=== PATIENT | male | born 1940 | race Caucasian/White ===

== ENCOUNTER 2016-04-08 16:10 | Inpatient (IN) | payer OTHER ==
[~2016-04-08] VITALS: Ht 170.2 cm; Wt 69.9 kg
[2016-04-08] MEDS ORDERED: ASPIRIN 325 MG TABLET ONE (16:28)
[2016-04-08] MEDS ORDERED: NITROGLYCERIN 0.4 MG/TAB BOTTLE ONE (16:28)
[2016-04-08] MEDS ORDERED: NITROGLYCERIN 0.4 MG/TAB BOTTLE SL ONE (16:30)
[2016-04-08] MEDS ORDERED: ASPIRIN 325 MG TABLET PO ONE (16:30)
[2016-04-08] MEDS ORDERED: FURO40TA5 PO (16:36)
[2016-04-08] MEDS ORDERED: GLIP10TA11 PO (16:36)
[2016-04-08] MEDS ORDERED: BENA40TA2 PO (16:36)
[2016-04-08] MEDS ORDERED: NIFE30TA7 PO (16:36)
[2016-04-08 16:40] LABS: BASOPHILS % (AUTO) 0.3 % (0.0-2.0); DIFF TOTAL % 100 %; EOSINOPHILS # (AUTO) 0.1 /CMM (0.0-0.7); EOSINOPHILS % (AUTO) 1.3 % (0.0-6.0); HEMATOCRIT 30 % (39-51); HEMOGLOBIN 10.1 g/dL (13.5-17.5); LYMPHOCYTES # (AUTO) 1.3 /CMM (0.8-4.8); LYMPHOCYTES % (AUTO) 13.2 % (20.0-44.0); MEAN CORPUSCULAR HEMOGLOBIN 30 PG (26.0-33.0); MEAN CORPUSCULAR HGB CONC 34 g/dl (31.0-36.0); MEAN CORPUSCULAR VOLUME 90 fL (80-96); MONOCYTES # (AUTO) 0.6 /CMM (0.1-1.30); MONOCYTES % (AUTO) 6.8 % (2.0-12.0); NEUTROPHILS # (AUTO) 7.5 /CMM (1.8-8.9); NEUTROPHILS % (AUTO) 78.4 % (43.0-81.0); PLATELET COUNT (AUTO) 221 /CMM (150-450); RED BLOOD CELL COUNT(AUTO) 3.36 MIL/uL (4.5-6.0); WHITE BLOOD COUNT (AUTO) 9.5 K/uL (4.3-11.0)
[2016-04-08] MEDS ORDERED: LEVOFLOXACIN 750 MG /D5W 150ML 150 ML IV ONE ×2 (16:56→17:00)
[2016-04-08] MEDS ORDERED: IV SET PRIMARY PUMP SET 1 EA INFUS.SET MC ONE ×2 (16:56→23:44)
[2016-04-08 16:58] LABS: INR 0.97 (0.87-1.13); PROTHROMBIN TIME 10.2 SECS (9.5-12.7)
[2016-04-08 17:03] LABS: ALANINE AMINOTRANSFERASE 18 U/L (12-78); ALBUMIN 3.2 g/dL (3.4-5.0); ANION GAP 15 (5-14); ASPARTATE AMINOTRANSFERASE 14 U/L (15-37); BILIRUBIN,DIRECT 0.1 mg/dL (0.0-0.2); BILIRUBIN,TOTAL 0.5 mg/dL (0.2-1.0); CALCIUM, SERUM 9.3 mg/dL (8.5-10.1); CARBON DIOXIDE 32 mmol/L (21-32); CHLORIDE 97 mmol/L (98-107); GLUCOSE 168 mg/dL (74-106); INDIRECT BILIRUBIN 0.4 mg/dL (0.0-1.1); POTASSIUM 4.7 mmol/L (3.5-5.1); SODIUM SERUM 139 mmol/L (136-145); TOTAL PROTEIN, SERUM 7.6 g/dL (6.4-8.2); UREA NITROGEN, BLOOD 49 mg/dL (7-18)
[2016-04-08 17:11] LABS: CREATININE 8.1 mg/dL (0.6-1.3)
[2016-04-08 17:12] LABS: TROPONIN I 0.878 ng/mL (0.00-0.056)
[2016-04-08 20:00] VITALS: BP_SYST 151; BP_SYST 152; BP_DIAS 107; BP_DIAS 84
[2016-04-08 21:00] VITALS: BP 152/107
[2016-04-08] MEDS ORDERED: MAG HYDROX/AL HYDROX/SIMETH 30 ML UDC PO PRN (23:30)
[2016-04-08] MEDS ORDERED: VANCOMYCIN 1 GM in IV D5W 250 ML IV SCH (23:30)
[2016-04-08] MEDS ORDERED: ZOLPIDEM TARTRATE 5 MG TABLET PO PRN (23:30)
[2016-04-08] MEDS ORDERED: ACETAMINOPHEN 325 MG TABLET PO PRN (23:30)
[2016-04-08] MEDS ORDERED: ONDANSETRON HCL/PF 4 MG/2 ML VIAL IVP PRN (23:30)
[2016-04-08] MEDS ORDERED: LEVOFLOXACIN 500 MG /D5W 100ML 100 ML IV SCH (23:30)
[2016-04-08] MEDS ORDERED: HYDROCODONE/APAP 5/325MG 1 EACH TABLET PO PRN (23:30)
[2016-04-08] MEDS ORDERED: MAGNESIUM HYDROXIDE 30 ML UDC PO PRN (23:30)
[2016-04-08] MEDS ORDERED: Z GUARD REMEDY 2 OZ OINT TP PRN (23:30)
[2016-04-08] MEDS ORDERED: MORPHINE SULFATE INJ 2 MG/ML DISP.SYRIN IV PRN (23:30)
[2016-04-08] MEDS ORDERED: IV NS 0.9% 250 ML IV ONE (23:44)
[2016-04-08] MEDS ORDERED: SECONDARY IV SET 1 EA INFUS.SET MC ONE (23:44)
[2016-04-08] MEDS ORDERED: PIPERACILLIN /TAZOBACTAM 3.375 G VIAL IV ONE (23:51)
[2016-04-08] MEDS ORDERED: ZOLPIDEM TARTRATE 5 MG TABLET ONE (23:51)
[2016-04-08] MEDS ORDERED: IV D5W 100 ML IV ONE (23:52)
[2016-04-09] VITALS (8 sets, daily range): BP systolic 146–192; BP diastolic 84–112
[2016-04-09] MEDS ORDERED: IV D5W 250 ML IV ONE ×2 (00:11→00:41)
[2016-04-09] MEDS ORDERED: VANCOMYCIN 1 GM VIAL ONE (00:11)
[2016-04-09] MEDS: PIPERACILLIN /TAZOBACTAM 3.375 G in IV D5W 100 ML IV SCH ×2 (00:14→05:00)
[2016-04-09] MEDS ORDERED: DEXTROSE 50%-WATER 50 ML DISP.SYRIN IV PRN (01:00)
[2016-04-09] MEDS ORDERED: METOPROLOL TARTRATE 25 MG TABLET ONE (03:18)
[2016-04-09] MEDS ORDERED: ALBUTEROL FS 2.5 MG/0.5 ML VIAL.NEB NEB PRN (03:30)
[2016-04-09] MEDS ORDERED: METOPROLOL TARTRATE 25 MG TABLET PO PRN (03:30)
[2016-04-09] MEDS ORDERED: IPRATROPIUM NEB FS 0.5 MG/2.5 ML AMPUL.NEB NEB PRN (03:30)
[2016-04-09] MEDS ORDERED: PIPERACILLIN /TAZOBACTAM 3.375 G in IV D5W 100 ML IV SCH (05:00)
[2016-04-09] MEDS: BLOOD SUGAR DIAGNOSTIC 1 EACH STRIP IN SCH ×4 (06:03→21:35)
[2016-04-09 07:32] LABS: BASOPHILS % (AUTO) 0.2 % (0.0-2.0); DIFF TOTAL % 100 %; EOSINOPHILS % (AUTO) 0.3 % (0.0-6.0); HEMATOCRIT 31 % (39-51); HEMOGLOBIN 10.6 g/dL (13.5-17.5); LYMPHOCYTES # (AUTO) 0.8 /CMM (0.8-4.8); LYMPHOCYTES % (AUTO) 5.9 % (20.0-44.0); MEAN CORPUSCULAR HEMOGLOBIN 30 PG (26.0-33.0); MEAN CORPUSCULAR HGB CONC 34 g/dl (31.0-36.0); MEAN CORPUSCULAR VOLUME 90 fL (80-96); MONOCYTES # (AUTO) 0.7 /CMM (0.1-1.30); MONOCYTES % (AUTO) 5.2 % (2.0-12.0); NEUTROPHILS # (AUTO) 12.4 /CMM (1.8-8.9); NEUTROPHILS % (AUTO) 88.4 % (43.0-81.0); PLATELET COUNT (AUTO) 241 /CMM (150-450); RED BLOOD CELL COUNT(AUTO) 3.48 MIL/uL (4.5-6.0)
[2016-04-09 07:48] LABS: ALANINE AMINOTRANSFERASE 15 U/L (12-78); ALBUMIN 3.2 g/dL (3.4-5.0); ANION GAP 18 (5-14); ASPARTATE AMINOTRANSFERASE 19 U/L (15-37); BILIRUBIN,TOTAL 0.5 mg/dL (0.2-1.0); CALCIUM, SERUM 9.2 mg/dL (8.5-10.1); CARBON DIOXIDE 29 mmol/L (21-32); CHLORIDE 95 mmol/L (98-107); GLUCOSE 175 mg/dL (74-106); PHOSPHORUS 4.3 mg/dL (2.5-4.9); POTASSIUM 5.3 mmol/L (3.5-5.1); SODIUM SERUM 137 mmol/L (136-145); TOTAL PROTEIN, SERUM 7.9 g/dL (6.4-8.2); UREA NITROGEN, BLOOD 56 mg/dL (7-18)
[2016-04-09 07:53] LABS: CREATININE 8.8 mg/dL (0.6-1.3)
[2016-04-09] MEDS: BENAZEPRIL HCL 20 MG TABLET PO SCH (08:09)
[2016-04-09] MEDS: glipiZIDE 10 MG TABLET PO SCH (08:09)
[2016-04-09] MEDS: FUROSEMIDE 40 MG TABLET PO SCH ×2 (08:09→17:10)
[2016-04-09] MEDS: NIFEdipine XL (30MG) 30 MG TAB PO SCH (08:10)
[2016-04-09] MEDS: PANTOPRAZOLE 40 MG VIAL IV SCH (08:10)
[2016-04-09] MEDS ORDERED: FEE PK DOSING 1 MIN EA MC ONE (08:16)
[2016-04-09] MEDS ORDERED: VANCOMYCIN 500 MG in IV D5W 100 ML IV PRN (08:30)
[2016-04-09] MEDS ORDERED: hydrALAZINE HCL 50 MG TABLET PO ONE (11:30)
[2016-04-09] MEDS: PIPERACILLIN /TAZOBACTAM 2.25 G in IV D5W 50 ML IV SCH ×2 (11:43→18:24)
[2016-04-09] MEDS: MINOXIDIL (2.5MG) 2.5 MG TABLET PO SCH (11:44)
[2016-04-09] MEDS: hydrALAZINE HCL 25 MG TABLET PO SCH ×2 (12:37→23:13)
[2016-04-09] MEDS ORDERED: LEVOFLOXACIN 500 MG /D5W 100ML 100 ML IV SCH (17:00)
[2016-04-09] MEDS ORDERED: LEVOFLOXACIN 250 MG /D5W 50 ML 250 MG in PREMIX 1 EA IV SCH (17:00)
[2016-04-09] MEDS ORDERED: SECONDARY IV SET 1 EA INFUS.SET MC ONE ×2 (17:09→23:09)
[2016-04-09] MEDS ORDERED: VANCOMYCIN 1 GM in IV D5W 250 ML IV ONE (20:00)
[2016-04-09] MEDS: *INSULIN REGULAR(HUMULIN R)HUM 100 UNIT/ML VIAL SQ PRN (21:39)
[2016-04-09] MEDS: ATORVASTATIN 40 MG TABLET PO SCH (23:12)
[2016-04-09] MEDS: CARVEDILOL 12.5 MG TABLET PO SCH (23:12)
[2016-04-10] VITALS: BP 157/93
[2016-04-10] MEDS: PIPERACILLIN /TAZOBACTAM 2.25 G in IV D5W 50 ML IV SCH ×4 (00:19→19:53)
[2016-04-10 04:00] VITALS: BP 155/84
[2016-04-10] MEDS: hydrALAZINE HCL 25 MG TABLET PO SCH ×3 (04:48→21:00)
[2016-04-10] MEDS: BLOOD SUGAR DIAGNOSTIC 1 EACH STRIP IN SCH ×4 (06:26→22:20)
[2016-04-10] MEDS: INSULIN REGULAR, HUMAN 100 UNIT/ML 3 ML VIAL SQ PRN ×3 (06:29→18:34)
[2016-04-10 07:09] VITALS: BP 170/90
[2016-04-10 07:36] LABS: BASOPHILS # (AUTO) 0.1 /CMM (0.0-0.2); BASOPHILS % (AUTO) 0.5 % (0.0-2.0); DIFF TOTAL % 100 %; EOSINOPHILS # (AUTO) 0.1 /CMM (0.0-0.7); EOSINOPHILS % (AUTO) 0.6 % (0.0-6.0); HEMATOCRIT 27 % (39-51); LYMPHOCYTES # (AUTO) 0.9 /CMM (0.8-4.8); LYMPHOCYTES % (AUTO) 8.8 % (20.0-44.0); MEAN CORPUSCULAR HEMOGLOBIN 30 PG (26.0-33.0); MEAN CORPUSCULAR HGB CONC 34 g/dl (31.0-36.0); MEAN CORPUSCULAR VOLUME 90 fL (80-96); MONOCYTES # (AUTO) 0.8 /CMM (0.1-1.30); NEUTROPHILS # (AUTO) 8.1 /CMM (1.8-8.9); NEUTROPHILS % (AUTO) 82.1 % (43.0-81.0); PLATELET COUNT (AUTO) 209 /CMM (150-450); RED BLOOD CELL COUNT(AUTO) 2.96 MIL/uL (4.5-6.0); WHITE BLOOD COUNT (AUTO) 9.9 K/uL (4.3-11.0)
[2016-04-10 07:48] LABS: CALCIUM, SERUM 8.7 mg/dL (8.5-10.1); CREATININE 6.5 mg/dL (0.6-1.3); PHOSPHORUS 3.8 mg/dL (2.5-4.9); POTASSIUM 4.1 mmol/L (3.5-5.1)
[2016-04-10] MEDS ORDERED: VANCOMYCIN 500 MG in IV D5W 100 ML IV PRN (08:30)
[2016-04-10] MEDS: CARVEDILOL 12.5 MG TABLET PO SCH ×2 (09:00→21:00)
[2016-04-10] MEDS: MINOXIDIL (2.5MG) 2.5 MG TABLET PO SCH (09:00)
[2016-04-10] MEDS: glipiZIDE 10 MG TABLET PO SCH ×2 (09:00→10:08)
[2016-04-10] MEDS: FUROSEMIDE 40 MG TABLET PO SCH ×2 (10:05→18:49)
[2016-04-10] MEDS: ASPIRIN 81 MG TAB.CHEW PO SCH (10:05)
[2016-04-10] MEDS: NIFEdipine XL (30MG) 30 MG TAB PO SCH (10:05)
[2016-04-10] MEDS: BENAZEPRIL HCL 20 MG TABLET PO SCH (10:06)
[2016-04-10] MEDS: PANTOPRAZOLE 40 MG VIAL IV SCH (10:08)
[2016-04-10] MEDS ORDERED: NA PHOS,M-B/NA PHOS,DI-BA 1 EA ENEMA RC PRN (15:30)
[2016-04-10 16:00] VITALS: BP 136/66
[2016-04-10] MEDS: LACTOBACILLUS RHAMNOSUS GG 1 EACH CAP.SPRINK PO SCH (18:49)
[2016-04-10 20:25] VITALS: BP 145/77
[2016-04-10] MEDS: ATORVASTATIN 40 MG TABLET PO SCH (22:07)
[2016-04-10] MEDS: *INSULIN REGULAR(HUMULIN R)HUM 100 UNIT/ML VIAL SQ PRN (22:30)
[2016-04-11] MEDS: PIPERACILLIN /TAZOBACTAM 2.25 G in IV D5W 50 ML IV SCH ×2 (00:11→05:56)
[2016-04-11] MEDS: hydrALAZINE HCL 25 MG TABLET PO SCH (05:00)
[2016-04-11] MEDS: BLOOD SUGAR DIAGNOSTIC 1 EACH STRIP IN SCH ×2 (05:55→12:00)
[2016-04-11] MEDS: INSULIN REGULAR, HUMAN 100 UNIT/ML 3 ML VIAL SQ PRN (06:16)
[2016-04-11 06:49] LABS: BASOPHILS % (AUTO) 0.4 % (0.0-2.0); DIFF TOTAL % 100 %; EOSINOPHILS # (AUTO) 0.2 /CMM (0.0-0.7); EOSINOPHILS % (AUTO) 1.7 % (0.0-6.0); HEMATOCRIT 25 % (39-51); HEMOGLOBIN 8.4 g/dL (13.5-17.5); LYMPHOCYTES # (AUTO) 0.8 /CMM (0.8-4.8); LYMPHOCYTES % (AUTO) 8.2 % (20.0-44.0); MEAN CORPUSCULAR HEMOGLOBIN 30 PG (26.0-33.0); MEAN CORPUSCULAR HGB CONC 34 g/dl (31.0-36.0); MEAN CORPUSCULAR VOLUME 90 fL (80-96); MONOCYTES # (AUTO) 0.6 /CMM (0.1-1.30); MONOCYTES % (AUTO) 6.8 % (2.0-12.0); NEUTROPHILS # (AUTO) 7.8 /CMM (1.8-8.9); NEUTROPHILS % (AUTO) 82.9 % (43.0-81.0); PLATELET COUNT (AUTO) 212 /CMM (150-450); WHITE BLOOD COUNT (AUTO) 9.4 K/uL (4.3-11.0)
[2016-04-11 07:47] LABS: PHOSPHORUS 4.3 mg/dL (2.5-4.9); POTASSIUM 4.3 mmol/L (3.5-5.1)
[2016-04-11 07:50] LABS: CREATININE 8.5 mg/dL (0.6-1.3)
[2016-04-11 08:00] VITALS: BP 152/84
[2016-04-11] MEDS: NIFEdipine XL (30MG) 30 MG TAB PO SCH (08:31)
[2016-04-11] MEDS: glipiZIDE 10 MG TABLET PO SCH (08:31)
[2016-04-11] MEDS: FUROSEMIDE 40 MG TABLET PO SCH (08:31)
[2016-04-11] MEDS: ASPIRIN 81 MG TAB.CHEW PO SCH (08:31)
[2016-04-11] MEDS: BENAZEPRIL HCL 20 MG TABLET PO SCH (08:31)
[2016-04-11] MEDS: LACTOBACILLUS RHAMNOSUS GG 1 EACH CAP.SPRINK PO SCH (08:31)
[2016-04-11 08:32] VITALS: BP 152/84
[2016-04-11] MEDS: CARVEDILOL 12.5 MG TABLET PO SCH (08:32)
[2016-04-11] MEDS: MINOXIDIL (2.5MG) 2.5 MG TABLET PO SCH (08:32)
[2016-04-11] MEDS: PANTOPRAZOLE 40 MG VIAL IV SCH (08:32)
== END 2016-04-11 12:30 | disposition home or self-care (01) | DRG 194 ==
LOC: ER 16:13 → TELE 19:40 → MED 04-10 11:45
PROVIDERS: ADMIT Nurse Practitioner Acute Care; ATTEND Nurse Practitioner Acute Care
PROC: 5A1D60Z (ICD-10-PCS; principal; 2016-04-09)
DX: I13.2 Hypertensive heart and chronic kidney disease with heart failure and with stage 5 chronic kidney disease, or end stage renal disease (principal); I21.4 Non-ST elevation (NSTEMI) myocardial infarction; J96.01 Acute respiratory failure with hypoxia; J15.9 Unspecified bacterial pneumonia; E44.0 Moderate protein-calorie malnutrition; J90 Pleural effusion, not elsewhere classified; N18.6 End stage renal disease; I42.9 Cardiomyopathy, unspecified; I50.43 Acute on chronic combined systolic (congestive) and diastolic (congestive) heart failure; I50.1 Left ventricular failure, unspecified; E11.22 Type 2 diabetes mellitus with diabetic chronic kidney disease; D63.8 Anemia in other chronic diseases classified elsewhere; Z99.2 Dependence on renal dialysis; E87.5 Hyperkalemia; I25.10 Atherosclerotic heart disease of native coronary artery without angina pectoris; K21.9 Gastro-esophageal reflux disease without esophagitis; Z68.24 Body mass index [BMI] 24.0-24.9, adult
CPT/HCPCS: 36415; 71010-TC; 80048-TC; 80053-TC; 80061-TC; 80076-TC; 80202-TC; 82962-TC; 83605-TC; 83735-TC; 83880; 84100-TC; 84484-TC; 85025-TC; 85730-TC; 87040-TC; 90935-TC; 93307-TC; 94799-TC; 97001-TC; A4216; A4606; C9113; J1815; J1956; J2543; J3370; J7050; J7060; Z7610

== ENCOUNTER 2016-05-12 10:20 | Inpatient (IN) | payer OTHER ==
[~2016-05-12] VITALS: Ht 167.6 cm; Wt 74.8 kg
[~2016-05-12 10:20] MED LIST: BENA40TA2 PO; FURO40TA5 PO; GLIP10TA11 PO; NIFE30TA7 PO
[2016-05-12 10:59] LABS: BASOPHILS # (AUTO) 0.1 /CMM (0.0-0.2); BASOPHILS % (AUTO) 0.7 % (0.0-2.0); DIFF TOTAL % 100 %; EOSINOPHILS # (AUTO) 0.2 /CMM (0.0-0.7); EOSINOPHILS % (AUTO) 2.5 % (0.0-6.0); HEMATOCRIT 27 % (39-51); HEMOGLOBIN 9.1 g/dL (13.5-17.5); LYMPHOCYTES # (AUTO) 1.2 /CMM (0.8-4.8); LYMPHOCYTES % (AUTO) 13.8 % (20.0-44.0); MEAN CORPUSCULAR HEMOGLOBIN 30 PG (26.0-33.0); MEAN CORPUSCULAR HGB CONC 34 g/dl (31.0-36.0); MEAN CORPUSCULAR VOLUME 90 fL (80-96); MONOCYTES # (AUTO) 0.5 /CMM (0.1-1.30); MONOCYTES % (AUTO) 5.5 % (2.0-12.0); NEUTROPHILS # (AUTO) 6.8 /CMM (1.8-8.9); NEUTROPHILS % (AUTO) 77.5 % (43.0-81.0); PLATELET COUNT (AUTO) 309 /CMM (150-450); RED BLOOD CELL COUNT(AUTO) 3.02 MIL/uL (4.5-6.0); WHITE BLOOD COUNT (AUTO) 8.8 K/uL (4.3-11.0)
[2016-05-12] MEDS ORDERED: PROM6.25 PO (11:06)
[2016-05-12] MEDS ORDERED: AMPI250C13 PO (11:06)
[2016-05-12] MEDS ORDERED: ASPI81TA2 PO (11:06)
[2016-05-12] MEDS ORDERED: SIMV20TA6 PO (11:06)
[2016-05-12 11:17] LABS: INR 0.98 (0.87-1.13); PROTHROMBIN TIME 10.3 SECS (9.5-12.7)
[2016-05-12 11:21] LABS: TROPONIN I 0.112 ng/mL (0.00-0.056)
[2016-05-12 12:00] VITALS: BP 148/94
[2016-05-12 12:08] LABS: CALCIUM, SERUM 9.5 mg/dL (8.5-10.1)
[2016-05-12 12:10] LABS: CREATININE 9.4 mg/dL (0.6-1.3)
[2016-05-12 12:21] LABS: ALBUMIN 3.5 g/dL (3.4-5.0); BILIRUBIN,DIRECT 0.1 mg/dL (0.0-0.2); BILIRUBIN,TOTAL 0.6 mg/dL (0.2-1.0); INDIRECT BILIRUBIN 0.5 mg/dL (0.0-1.1); TOTAL PROTEIN, SERUM 7.8 g/dL (6.4-8.2)
[2016-05-12] MEDS ORDERED: FUROSEMIDE 20 MG/2 ML VIAL IV SCH (12:30)
[2016-05-12] MEDS ORDERED: ASPIRIN 325 MG TABLET PO ONE (12:30)
[2016-05-12] MEDS ORDERED: NITROGLYCERIN PACKET 1 GM PACKET TD ONE (12:30)
[2016-05-12] MEDS ORDERED: EPOETIN ALFA (10,000 UNIT) 10,000 UNIT/ML VIAL SQ ONE (15:00)
[2016-05-12 16:00] VITALS: BP 152/93
[2016-05-12 20:00] VITALS: BP 167/83
[2016-05-12] MEDS ORDERED: MAG HYDROX/AL HYDROX/SIMETH 30 ML UDC PO PRN (20:00)
[2016-05-12] MEDS ORDERED: MAGNESIUM HYDROXIDE 30 ML UDC PO PRN (20:00)
[2016-05-12] MEDS ORDERED: ONDANSETRON HCL/PF 4 MG/2 ML VIAL IVP PRN (20:00)
[2016-05-12] MEDS ORDERED: HYDROCODONE/APAP 5/325MG 1 EACH TABLET PO PRN (20:00)
[2016-05-12] MEDS ORDERED: ZOLPIDEM TARTRATE 5 MG TABLET PO PRN (20:00)
[2016-05-12] MEDS ORDERED: ACETAMINOPHEN 325 MG TABLET PO PRN (20:00)
[2016-05-12] MEDS ORDERED: Z GUARD REMEDY 2 OZ OINT TP PRN (20:00)
[2016-05-13] VITALS: BP 168/97
[2016-05-13 04:00] VITALS: BP 153/93
[2016-05-13 08:00] VITALS: BP 109/84
[2016-05-13 08:25] LABS: CALCIUM, SERUM 9.3 mg/dL (8.5-10.1); PHOSPHORUS 4.4 mg/dL (2.5-4.9); POTASSIUM 5.1 mmol/L (3.5-5.1)
[2016-05-13 08:29] LABS: BASOPHILS % (AUTO) 0.6 % (0.0-2.0); DIFF TOTAL % 100 %; EOSINOPHILS # (AUTO) 0.1 /CMM (0.0-0.7); HEMATOCRIT 27 % (39-51); HEMOGLOBIN 9.1 g/dL (13.5-17.5); LYMPHOCYTES # (AUTO) 1.1 /CMM (0.8-4.8); MEAN CORPUSCULAR HEMOGLOBIN 30 PG (26.0-33.0); MEAN CORPUSCULAR HGB CONC 33 g/dl (31.0-36.0); MEAN CORPUSCULAR VOLUME 90 fL (80-96); MONOCYTES # (AUTO) 0.5 /CMM (0.1-1.30); MONOCYTES % (AUTO) 7.4 % (2.0-12.0); NEUTROPHILS # (AUTO) 5.3 /CMM (1.8-8.9); PLATELET COUNT (AUTO) 283 /CMM (150-450); RED BLOOD CELL COUNT(AUTO) 3.04 MIL/uL (4.5-6.0); WHITE BLOOD COUNT (AUTO) 7.1 K/uL (4.3-11.0)
[2016-05-13] MEDS: FUROSEMIDE 40 MG/4 ML VIAL IV SCH (08:34)
[2016-05-13] MEDS: SIMVASTATIN 20 MG TABLET PO SCH (08:34)
[2016-05-13] MEDS: PROMETHAZINE HCL SYRUP 6.25 MG/5 ML UDC PO SCH ×3 (08:34→16:49)
[2016-05-13] MEDS: ASPIRIN 81 MG TAB.CHEW PO SCH (08:34)
[2016-05-13] MEDS: NIFEdipine XL (30MG) 30 MG TAB PO SCH (08:35)
[2016-05-13] MEDS: BENAZEPRIL HCL 20 MG TABLET PO SCH (08:35)
[2016-05-13 09:03] LABS: CHOLESTEROL 194 mg/dL (<200); HDL CHOLESTEROL 41 mg/dL (40-60); LDL 134 mg/dL (0-99); TRIGLYCERIDES 125 mg/dL (30-150)
[2016-05-13] MEDS: CARVEDILOL 3.125 MG TABLET PO SCH ×2 (10:05→21:00)
[2016-05-13 16:00] VITALS: BP 158/90
[2016-05-13 20:00] VITALS: BP 161/94
[2016-05-14 07:19] LABS: BASOPHILS # (AUTO) 0.1 /CMM (0.0-0.2); BASOPHILS % (AUTO) 0.7 % (0.0-2.0); DIFF TOTAL % 100 %; EOSINOPHILS # (AUTO) 0.2 /CMM (0.0-0.7); HEMATOCRIT 29 % (39-51); HEMOGLOBIN 9.7 g/dL (13.5-17.5); LYMPHOCYTES # (AUTO) 1.2 /CMM (0.8-4.8); LYMPHOCYTES % (AUTO) 14.8 % (20.0-44.0); MEAN CORPUSCULAR HEMOGLOBIN 30 PG (26.0-33.0); MEAN CORPUSCULAR HGB CONC 33 g/dl (31.0-36.0); MEAN CORPUSCULAR VOLUME 89 fL (80-96); MONOCYTES # (AUTO) 0.5 /CMM (0.1-1.30); MONOCYTES % (AUTO) 6.1 % (2.0-12.0); NEUTROPHILS # (AUTO) 6.2 /CMM (1.8-8.9); NEUTROPHILS % (AUTO) 76.4 % (43.0-81.0); PLATELET COUNT (AUTO) 257 /CMM (150-450); RED BLOOD CELL COUNT(AUTO) 3.25 MIL/uL (4.5-6.0); WHITE BLOOD COUNT (AUTO) 8.1 K/uL (4.3-11.0)
[2016-05-14 07:56] LABS: ALANINE AMINOTRANSFERASE 12 U/L (12-78); ALBUMIN 3.3 g/dL (3.4-5.0); ANION GAP 18 (5-14); ASPARTATE AMINOTRANSFERASE 15 U/L (15-37); BILIRUBIN,TOTAL 0.5 mg/dL (0.2-1.0); CALCIUM, SERUM 9.1 mg/dL (8.5-10.1); CARBON DIOXIDE 26 mmol/L (21-32); CHLORIDE 97 mmol/L (98-107); GLUCOSE 161 mg/dL (74-106); POTASSIUM 4.5 mmol/L (3.5-5.1); SODIUM SERUM 137 mmol/L (136-145); TOTAL PROTEIN, SERUM 7.6 g/dL (6.4-8.2); UREA NITROGEN, BLOOD 42 mg/dL (7-18)
[2016-05-14 08:00] VITALS: BP 154/100
[2016-05-14 08:28] LABS: CREATININE 8.4 mg/dL (0.6-1.3)
[2016-05-14] MEDS: FUROSEMIDE 40 MG/4 ML VIAL IV SCH (09:50)
[2016-05-14] MEDS: SIMVASTATIN 20 MG TABLET PO SCH (09:51)
[2016-05-14] MEDS: BENAZEPRIL HCL 20 MG TABLET PO SCH (09:51)
[2016-05-14] MEDS: ASPIRIN 81 MG TAB.CHEW PO SCH (09:51)
[2016-05-14] MEDS: NIFEdipine XL (30MG) 30 MG TAB PO SCH (09:52)
[2016-05-14] MEDS: CARVEDILOL 3.125 MG TABLET PO SCH (09:52)
[2016-05-14] MEDS: PROMETHAZINE HCL SYRUP 6.25 MG/5 ML UDC PO SCH ×3 (10:05→17:58)
[2016-05-14 21:00] VITALS: BP 155/91
[2016-05-14] MEDS ORDERED: CARVEDILOL 3.125 MG TABLET PO SCH (21:00)
[2016-05-14] MEDS ORDERED: ATORVASTATIN 40 MG TABLET PO SCH (22:00)
== END 2016-05-14 22:15 | disposition short-term general hospital (02) | DRG 194 ==
LOC: ER 10:22 → TELE 11:35 → MED 05-13 09:26
PROVIDERS: ADMIT Family Medicine; ATTEND Family Medicine
PROC: 5A1D60Z (ICD-10-PCS; principal; 2016-05-12)
DX: I13.2 Hypertensive heart and chronic kidney disease with heart failure and with stage 5 chronic kidney disease, or end stage renal disease (principal); I21.4 Non-ST elevation (NSTEMI) myocardial infarction; N18.6 End stage renal disease; E11.22 Type 2 diabetes mellitus with diabetic chronic kidney disease; I27.2 Other secondary pulmonary hypertension; E83.9 Disorder of mineral metabolism, unspecified; I50.23 Acute on chronic systolic (congestive) heart failure; I42.9 Cardiomyopathy, unspecified; Z99.2 Dependence on renal dialysis; E78.5 Hyperlipidemia, unspecified; I25.10 Atherosclerotic heart disease of native coronary artery without angina pectoris; D64.9 Anemia, unspecified
CPT/HCPCS: 36415; 71010-TC; 80048-TC; 80053-TC; 80061-TC; 80076-TC; 82962-TC; 83735-TC; 83880; 84100-TC; 84484-TC; 85025-TC; 85730-TC; 87081-TC; 90935-TC; 94799-TC; A4606; A6402; A6403; J0885; J1940; Q0169; Z7610

== ENCOUNTER 2018-01-11 00:27 | Inpatient (IN) | payer OTHER ==
[~2018-01-11] VITALS: Ht 165.1 cm; Wt 59.9 kg
[~2018-01-11 00:27] MED LIST changes: +ASPI-1169 PO; -BENA40TA2 PO; +BENA40TA8 PO; +PROM6.256 PO; +SIMV20TA6 PO
--- NOTE | 2018-01-11 00:34 | NUR ---
Note urvashione in EDM - 01/11/18 at 0048 by MARTIN BIB RA C/O GENERAL WEAKNESS X 1 DAY FROM HOME. AA/OX 4. SPEAKING FULL SENTENCES. NO S/S SOB. SKIN PINK, WARM, DRY. MOVES ALL EXTREMITIES WELL. DENIES N/V/D. DENIES ANY PAIN. NAD. VSS. STABLE CONDITION. WILL CONTINUE TO MONITOR.
--- NOTE | 2018-01-11 00:34 | NUR ---
BIB RA C/O GENERAL WEAKNESS X 1 DAY FROM HOME. AA/OX 4. SPEAKING FULL SENTENCES. O2SAT 90% ROOM AIR. PLACED ON 4LPM VIA NC. CURRENT O2 SAT 95%. SKIN PINK, WARM, DRY. MOVES ALL EXTREMITIES WELL. DENIES N/V/D. DENIES ANY PAIN. NAD. ALL OTHER VSS. STABLE CONDITION. WILL CONTINUE TO MONITOR.
--- NOTE | 2018-01-11 02:33 | NUR ---
Patient is resting comfortably in bed with eyes closed. Easily aroused. VSS
[2018-01-11 02:36] LABS: BASOPHILS % (AUTO) 0.5 % (0.0-2.0); EOSINOPHILS % (AUTO) 2.3 % (0.0-6.0); HEMATOCRIT 39 % (39-51); HEMOGLOBIN 12.4 g/dL (13.5-17.5); LYMPHOCYTES # (AUTO) 1.7 /CMM (0.8-4.8); LYMPHOCYTES % (AUTO) 19.3 % (20.0-44.0); MEAN CORPUSCULAR HGB CONC 32 g/dl (31.0-36.0); MEAN CORPUSCULAR VOLUME 94 fL (80-96); MONOCYTES # (AUTO) 0.6 /CMM (0.1-1.30); MONOCYTES % (AUTO) 7.4 % (2.0-12.0); NEUTROPHILS # (AUTO) 6.1 /CMM (1.8-8.9); NEUTROPHILS % (AUTO) 70.5 % (43.0-81.0); PLATELET COUNT (AUTO) 206 /CMM (150-450); RDW COEFFICIENT OF VARIATION 16.7 (11.5-15.0); WHITE BLOOD COUNT (AUTO) 8.7 K/uL (4.3-11.0)
--- NOTE | 2018-01-11 02:49 | NUR ---
AMBULATED TO BATHROOM WITH STABLE GAIT. NAD. VSS.
[2018-01-11 02:51] LABS: INR 0.99 (0.87-1.13)
[2018-01-11 02:52] LABS: ALANINE AMINOTRANSFERASE 13 U/L (12-78); ALBUMIN 3.8 g/dL (3.4-5.0); ALKALINE PHOSPHATASE 102 U/L (46-116); ASPARTATE AMINOTRANSFERASE 14 U/L (15-37); BILIRUBIN,DIRECT 0.1 mg/dL (0.0-0.2); BILIRUBIN,TOTAL 0.4 mg/dL (0.2-1.0); CALCIUM, SERUM 9.3 mg/dL (8.5-10.1); CARBON DIOXIDE 24 mmol/L (21-32); CHLORIDE 100 mmol/L (98-107); GLUCOSE 130 mg/dL (74-106); POTASSIUM 5.5 mmol/L (3.5-5.1); SODIUM SERUM 141 mmol/L (136-145); TOTAL PROTEIN, SERUM 7.5 g/dL (6.4-8.2); UREA NITROGEN, BLOOD 78 mg/dL (7-18)
[2018-01-11 02:54] LABS: CREATININE 11.3 mg/dL (0.6-1.3)
[2018-01-11 02:57] LABS: APPEARANCE,URINE CLEAR (CLEAR); BILIRUBIN,URINE NEGATIVE (NEGATIVE); BLOOD, URINE NEGATIVE Ery/uL (NEGATIVE); COLOR,URINE YELLOW (YELLOW); KETONES,URINE NEGATIVE (NEGATIVE); LEUKOCYTE ESTERASE ,URINE NEGATIVE (NEGATIVE); NITRITE, URINE NEGATIVE (NEGATIVE); PH,URINE 8.5 (5.0-8.0); PROTEIN,URINE 2+ mg/dl (NEGATIVE); UGLUCOSE 1+ mg/dL (NEGATIVE); UROBILINOGEN,URINE 0.2 EU/dL (0.2)
[2018-01-11 03:06] LABS: BACTERIA,URINE Rare /HPF (None Seen); RBC,URINE 0-2 /HPF (0-2); SQUAMOUS EPITHELIAL CELL,UR Few /HPF (None Seen); WBC,URINE 0-2 /HPF (0-3)
--- NOTE | 2018-01-11 03:46 | NUR ---
PT CONTINUES TO REST COMFORTABLY IN BED. EASILY AROUSED. NAD. VSS. SAFETY MEASURES IN PLACE. CALL LIGHT WITHIN REACH. WILL CONTINUE TO MONITOR.
--- NOTE | 2018-01-11 03:57 | NUR ---
REPORT GIVEN TO CAYETANO ARORA
[2018-01-11] MEDS ORDERED: CEFTRIAXONE 1GM BAG (ER ONLY) 50 ML IV ONE (05:00)
[2018-01-11] MEDS ORDERED: AZITHROMYCIN 250 MG TABLET PO ONE (05:00)
[2018-01-11] MEDS ORDERED: CEFTRIAXONE 1 G VIAL ONE (05:04)
[2018-01-11] MEDS ORDERED: AZITHROMYCIN 250 MG TABLET ONE (05:08)
--- NOTE | 2018-01-11 05:25 | NUR ---
PT TRANSPORTED TO TELE UNIT WITH STABLE CONDITION. VSS. NAD. VIA ACLS PROTOCOL. AMBULATED TO TELE BED WITH STABLE GAIT.
[2018-01-11 05:30] VITALS: BP 160/84
[2018-01-11] MEDS ORDERED: Z GUARD REMEDY 2 OZ OINT TP PRN (05:30)
[2018-01-11] MEDS ORDERED: MAGNESIUM HYDROXIDE 30 ML UDC PO PRN (05:30)
[2018-01-11] MEDS ORDERED: HYDROCODONE/APAP 5/325MG 1 EACH TABLET PO PRN (05:30)
[2018-01-11] MEDS ORDERED: AZITHROMYCIN 250 MG TABLET PO SCH (05:30)
[2018-01-11] MEDS ORDERED: MORPHINE SULFATE INJ 2 MG/ML DISP.SYRIN IV PRN (05:30)
--- NOTE | 2018-01-11 05:59 | NUR ---
RN NOTE RECEIVED PATIENT FROM ER, ON ROOM AIR 98%, AMBULATORY, DX ACUTE RESPIRATORY DISTRESS, NO S/S OF PAIN OR DISCOMFORT NOTED, RIGHT UPPER SHOULDER SHUNT, SKIN IS INTACT, RIGHT HAND 18 GAUGE, NO S/S OF INFECTION/INFILTRATION NOTED, ALERT/ORIENTED X 4, ALL SAFETY MEASURES TAKEN, WILL CONTINUE TO MONITOR
[2018-01-11] MEDS ORDERED: CEFTRIAXONE 1 G in IV D5W 50 ML IV SCH (06:00)
[2018-01-11 08:00] VITALS: BP 166/86
--- NOTE | 2018-01-11 08:00 | NUR ---
RN NOTES RECEIVED PATIENT SITTING, A/O X4, ABLE TO MAKE NEEDS KNOWN, ON ROOM AIR, NOSOB OR DIFFICULTY OF BREATHING NOTED AT THIS TIME, SATURATING AT 92%, DENIES CHEST PAIN OR ANY KIND OF DISCOMFORT, ON TELEMONITOR : SR HR AT 87, R CHEST WALL HEMODIALYSIS CATH, R HAND IVL G 18 INTACT AND PATENT UPON FLUSHING: SALINE LOCK. PATIENT AMBULATORY. ENCOURAGED TO VERBALIZED FEELINGS AND CONCERNED, CALL LIGHT PLACED WITHIN EASY REACH, SAFETY MEASURES IN PLACE, BED ALARM ON, WILL CONTINUE TO MONITOR PATIENT
[2018-01-11] MEDS ORDERED: AMIO200T4 PO (08:01)
[2018-01-11] MEDS ORDERED: ATOR40TA PO (08:01)
[2018-01-11] MEDS ORDERED: METO-357 PO (08:01)
[2018-01-11] MEDS ORDERED: LEVO50TA8 PO (08:01)
[2018-01-11] MEDS ORDERED: APIX5TAB PO (08:01)
[2018-01-11] MEDS ORDERED: FOLI0.8T23 PO (08:01)
[2018-01-11] MEDS ORDERED: SEVE800T8 PO (08:01)
[2018-01-11] MEDS ORDERED: HYDR-4076 PO (08:01)
[2018-01-11] MEDS: ALBUTEROL FS 2.5 MG/3 ML VIAL.NEB NEB SCH ×3 (08:07→19:28)
[2018-01-11] MEDS: SIMVASTATIN 20 MG TABLET PO SCH ×2 (08:38→08:48)
[2018-01-11] MEDS: FUROSEMIDE 40 MG TABLET PO SCH ×2 (08:38→17:05)
[2018-01-11] MEDS: BENAZEPRIL HCL 20 MG TABLET PO SCH ×2 (08:39→08:48)
[2018-01-11] MEDS: ASPIRIN 81 MG TAB.CHEW PO SCH ×2 (08:39→08:48)
[2018-01-11] MEDS ORDERED: NIFEdipine XL (30MG) 30 MG TAB PO SCH (09:00)
--- NOTE | 2018-01-11 09:00 | NUR ---
RN NOTES PATIENT REFUSED TO TAKE ASPIRIN, ATORVASTATIN AND BENAZEPRIL. PER PATIENT HE WILL ONLY TAKE MEDICINE THAT WAS PRESCRIBED TO HIM BY THE PRIMARY MD. WILL FOLLOW UP WITH ATTENDING HOSPITALIST.
--- NOTE | 2018-01-11 10:00 | NUR ---
RN NOTES SEEN AND EXAMINED BY DR TSAI, INFORMED MD THAT PATIENT WILL NOT TAKE MEDICINE UNLESS THE ONES PRESCRIBED BY PRIMARY PHYSICIAN. PER DR TSAI, OK TO GIVE HOME MEDICATIONS. SPOKE TO KEKE MEDICATION RECONCILIATION DONE.
[2018-01-11 11:24] LABS: MAGNESIUM 2.8 mg/dL (1.8-2.4); THYROID STIMULATING HORMONE 7.893 uIU/mL (0.358-3.74)
[2018-01-11 12:00] VITALS: BP 152/76
[2018-01-11] MEDS: SEVELAMER CARBONATE 800 MG TABLET PO SCH ×2 (12:25→17:04)
[2018-01-11] MEDS: APIXABAN 5 MG TABLET PO SCH ×2 (13:56→20:32)
--- NOTE | 2018-01-11 14:00 | NUR ---
RN NOTES INFORMED DR TSAI ON THE TRENDING TROPONIN. PER DR TSAI, INFORMED DR SIMMONS. DR SIMMONS INFORMED.
[2018-01-11 16:00] VITALS: BP 169/86
[2018-01-11] MEDS: hydrALAZINE HCL 25 MG TABLET PO SCH (17:04)
--- NOTE | 2018-01-11 19:00 | NUR ---
RN NOTES ENDORSED PATIENT FOR CONTINUITY OF CARE. ON STABLE CONDITION, NO SHORTNESS OF BREATH, NO COMPLAINTS OF PAIN. NO ACUTE CHANGES WITHIN THE SHIFT. ALL NURSING NEEDS ANTICIPATED AND MET. CALL LIGHT WITHIN REACH. SAFETY MEASURES IN PLACE AT ALL TIMES.
[2018-01-11 20:00] VITALS: BP 182/91
[2018-01-11] MEDS: ATORVASTATIN 40 MG TABLET PO SCH (21:07)
[2018-01-11] MEDS: ACETAMINOPHEN 325 MG TABLET PO PRN (21:53)
[2018-01-11] MEDS: hydrALAZINE HCL 25 MG TABLET PO PRN (21:53)
[2018-01-12] VITALS (7 sets, daily range): BP systolic 145–194; BP diastolic 80–109
--- NOTE | 2018-01-12 | NUR ---
RN NOTE BLOOD PRESSURE OF 185/96 NOTED, NOTIFIED DR YONAS SHELTON, NEW ORDER OF HYDRALAZINE 25MG PO X1 IS GIVEN AND CARRIED OUT, CHARGE NURSE IS AWARE, WILL CONTINUE TO MONITOR PATIENT
[2018-01-12] MEDS: ALBUTEROL FS 2.5 MG/3 ML VIAL.NEB NEB SCH ×4 (01:03→20:20)
[2018-01-12] MEDS ORDERED: hydrALAZINE HCL 25 MG TABLET PO SCH (01:10)
--- NOTE | 2018-01-12 04:00 | NUR ---
RN NOTE BP OF 182/98 NOTED, CALLED DR CAT BRANHAM, NEW ORDER OF NIFEDIPINE 60 MG PO NOW INSTEAD OF SCHEDULED 9AM GIVEN AND CARRIED OUT Addendum: 01/12/18 at 0640 by ANTOINE SOLANO RN NIFEDIPINE XL 60 MG
[2018-01-12] MEDS ORDERED: NIFEdipine (10MG) 10 MG CAPSULE PO SCH (05:00)
[2018-01-12] MEDS: AZITHROMYCIN 250 MG TABLET PO SCH (05:24)
[2018-01-12] MEDS: CEFTRIAXONE 1 G in IV D5W 50 ML IV SCH (05:25)
[2018-01-12] MEDS ORDERED: NIFEdipine XL 60 MG TAB PO ONE (05:30)
--- NOTE | 2018-01-12 06:40 | NUR ---
RN NOTE PATIENT IS AWAKE, ALERT/ORIENTED X 4, ALL DUE MEDS GIVEN, BP 170/89, DR CAT BRANHAM IS AWARE, CHARGE NURSE IS AWARE, ALL SAFETY MEASURES TAKEN, WILL ENDORSE TO AM SHIFT TO CONTINUE CARE
[2018-01-12 06:45] LABS: BASOPHILS % (AUTO) 0.3 % (0.0-2.0); EOSINOPHILS % (AUTO) 0.1 % (0.0-6.0); HEMATOCRIT 40 % (39-51); HEMOGLOBIN 12.8 g/dL (13.5-17.5); LYMPHOCYTES # (AUTO) 0.8 /CMM (0.8-4.8); LYMPHOCYTES % (AUTO) 7.5 % (20.0-44.0); MEAN CORPUSCULAR HGB CONC 32 g/dl (31.0-36.0); MEAN CORPUSCULAR VOLUME 94 fL (80-96); MONOCYTES # (AUTO) 0.7 /CMM (0.1-1.30); MONOCYTES % (AUTO) 5.9 % (2.0-12.0); NEUTROPHILS # (AUTO) 9.6 /CMM (1.8-8.9); NEUTROPHILS % (AUTO) 86.2 % (43.0-81.0); PLATELET COUNT (AUTO) 198 /CMM (150-450); RDW COEFFICIENT OF VARIATION 16.5 (11.5-15.0); RED BLOOD CELL COUNT(AUTO) 4.25 MIL/uL (4.5-6.0); WHITE BLOOD COUNT (AUTO) 11.1 K/uL (4.3-11.0)
[2018-01-12 07:14] LABS: CHOLESTEROL 111 mg/dL (<200); HDL CHOLESTEROL 56 mg/dL (40-60); LDL 47 mg/dL (0-99); TRIGLYCERIDES 120 mg/dL (30-150)
[2018-01-12 07:18] LABS: ALANINE AMINOTRANSFERASE 8 U/L (12-78); ALBUMIN 3.8 g/dL (3.4-5.0); ALKALINE PHOSPHATASE 72 U/L (46-116); ASPARTATE AMINOTRANSFERASE 11 U/L (15-37); BILIRUBIN,TOTAL 0.6 mg/dL (0.2-1.0); CALCIUM, SERUM 9.1 mg/dL (8.5-10.1); CARBON DIOXIDE 22 mmol/L (21-32); CHLORIDE 97 mmol/L (98-107); GLUCOSE 142 mg/dL (74-106); MAGNESIUM 2.5 mg/dL (1.8-2.4); PHOSPHORUS 4.7 mg/dL (2.5-4.9); POTASSIUM 5.4 mmol/L (3.5-5.1); SODIUM SERUM 136 mmol/L (136-145); TOTAL PROTEIN, SERUM 8.1 g/dL (6.4-8.2); UREA NITROGEN, BLOOD 59 mg/dL (7-18)
[2018-01-12 07:20] LABS: CREATININE 9.7 mg/dL (0.6-1.3)
[2018-01-12 07:43] LABS: TROPONIN I 0.497 ng/mL (0.00-0.056)
[2018-01-12 08:09] LABS: T3, FREE 2.3 pg/mL (2.0-4.4)
[2018-01-12] MEDS: LEVOTHYROXINE SODIUM 50 MCG TABLET PO SCH (08:16)
[2018-01-12] MEDS: VIT B CMPLX 3/FA/VIT C/BIOTIN 1 TAB TABLET PO SCH (08:16)
[2018-01-12] MEDS: FUROSEMIDE 40 MG TABLET PO SCH ×2 (08:16→17:45)
[2018-01-12] MEDS: ASPIRIN 81 MG TAB.CHEW PO SCH (08:16)
[2018-01-12] MEDS: SEVELAMER CARBONATE 800 MG TABLET PO SCH ×3 (08:17→17:46)
[2018-01-12] MEDS: BENAZEPRIL HCL 20 MG TABLET PO SCH (08:17)
[2018-01-12] MEDS: AMIODARONE HCL 200 MG TABLET PO SCH (08:18)
[2018-01-12] MEDS: hydrALAZINE HCL 25 MG TABLET PO SCH ×2 (08:18→17:46)
[2018-01-12] MEDS ORDERED: METOPROLOL SUCCINATE 50 MG TAB.SR.24H PO SCH (09:00)
[2018-01-12] MEDS: APIXABAN 5 MG TABLET PO SCH ×2 (11:07→21:12)
[2018-01-12] MEDS ORDERED: METOPROLOL TARTRATE INJ 5 MG/5 ML AMPUL ONE ×2 (11:21→11:49)
[2018-01-12] MEDS ORDERED: IOHEXOL-350 100 ML VIAL IV ONE (11:21)
[2018-01-12] MEDS ORDERED: CT SWABBABLE VALVE TRANS SET 1 EA INFUS.SET MC ONE (11:21)
[2018-01-12] MEDS ORDERED: METOPROLOL TARTRATE INJ 5 MG/5 ML AMPUL IVP ONE (13:30)
--- NOTE | 2018-01-12 14:00 | NUR ---
RN NOTE CT ANGIO POSTPONED UNTIL TOMORROW DUE TO ELEVATED HR
[2018-01-12] MEDS: LACTOBACILLUS RHAMNOSUS GG 1 EACH CAP.SPRINK PO SCH (17:45)
--- NOTE | 2018-01-12 20:00 | NUR ---
SUKUMAR RN NOTES RECEIVED BEDSIDE REPORT FROM AM NURSE. PATIENT IN BED, A/O X4, ABLE TO MAKE NEEDS KNOWN, ON NC 2L O2 WITH SPO2 OF 95%, NO SOB OR DIFFICULTY OF BREATHING NOTED AT THIS TIME, DENIES CHEST PAIN OR ANY KIND OF DISCOMFORT, ON TELEMONITOR : SR WITH PVC HR AT 89, R CHEST WALL HEMODIALYSIS CATH NOTED IN PLACE, R HAND IV LINE G18, RIGHT AC 18G IV LINE INTACT AND PATENT UPON FLUSHING: SALINE LOCK. PATIENT AMBULATORY. ENCOURAGED TO VERBALIZED FEELINGS AND CONCERNED, CALL LIGHT PLACED WITHIN EASY REACH, SAFETY MEASURES IN PLACE, BED ALARM ON, BED IN LOWEST, LOCKED POSITION. WILL CONTINUE TO MONITOR PATIENT CLOSELY.
[2018-01-12] MEDS: ZOLPIDEM TARTRATE 5 MG TABLET PO PRN (21:14)
[2018-01-12] MEDS: hydrALAZINE HCL 25 MG TABLET PO PRN (21:17)
[2018-01-12] MEDS: ATORVASTATIN 40 MG TABLET PO SCH (21:17)
--- NOTE | 2018-01-12 21:32 | NUR ---
patient B/P is 162/86 and HR 88 AND HYDRALAZINE 25MG PO HAS BEEN ADMINISTERED AT 21:17. PATIENT ALSO ASKED FOR SLEEPING MEDICATION AND AMBIEN 5MG PO HAS BEEN ADMINISTERED AT 2115. WILL CONTINUE TO MONITOR CLOSELY AND WILL REASSESS TIMELY.
--- NOTE | 2018-01-12 22:20 | NUR ---
patient is reassessed after administration of Ambien. patient is sleeping but arousal easily.
[2018-01-13] VITALS: BP 161/84
--- NOTE | 2018-01-13 00:10 | NUR ---
RN NOTES PATIENT'S B/P [id number] HR91 WITH HISTORY OF HIGH B/P AND HR. CALLED MD. EULALIO YOUNG WITH PATIENT'S LATEST B/P AND HR AND NO NEW ORDERS FOR NOW.
[2018-01-13] MEDS: ALBUTEROL FS 2.5 MG/3 ML VIAL.NEB NEB SCH ×4 (01:17→19:55)
[2018-01-13 04:00] VITALS: BP 151/77
[2018-01-13] MEDS: AZITHROMYCIN 250 MG TABLET PO SCH (05:46)
[2018-01-13] MEDS: CEFTRIAXONE 1 G in IV D5W 50 ML IV SCH (05:47)
--- NOTE | 2018-01-13 06:40 | NUR ---
SUKUMAR RN CLOSING NOTE PATIENT IN BED, A/O X4, ABLE TO MAKE NEEDS KNOWN, ON NC 2L O2 WITH SPO2 OF 96%, NO SOB OR DIFFICULTY OF BREATHING NOTED AT THIS TIME, DENIES CHEST PAIN OR ANY KIND OF DISCOMFORT, ON TELEMONITOR SR WITH PVC HR AT 89, R CHEST WALL HEMODIALYSIS CATH IN PLACE, R HAND IV LINE G18, RIGHT AC 18G IV LINE INTACT AND PATENT UPON FLUSHING: SALINE LOCK. PATIENT AMBULATORY WITH ASSIST AND WALKER. CALL LIGHT PLACED WITHIN EASY REACH, SAFETY MEASURES IN PLACE, BED ALARM ON, BED IN LOWEST, LOCKED POSITION. WILL ENDORSE PATIENT CARE TO AM NURSE FOR OBSTETRICS SPECIALIST.
[2018-01-13 06:49] LABS: BASOPHILS % (AUTO) 0.3 % (0.0-2.0); HEMATOCRIT 36 % (39-51); HEMOGLOBIN 11.6 g/dL (13.5-17.5); LYMPHOCYTES # (AUTO) 0.8 /CMM (0.8-4.8); MEAN CORPUSCULAR HGB CONC 32 g/dl (31.0-36.0); MEAN CORPUSCULAR VOLUME 93 fL (80-96); MONOCYTES # (AUTO) 0.7 /CMM (0.1-1.30); MONOCYTES % (AUTO) 6.5 % (2.0-12.0); NEUTROPHILS # (AUTO) 8.7 /CMM (1.8-8.9); NEUTROPHILS % (AUTO) 85.2 % (43.0-81.0); PLATELET COUNT (AUTO) 156 /CMM (150-450); RDW COEFFICIENT OF VARIATION 16.6 (11.5-15.0); RED BLOOD CELL COUNT(AUTO) 3.86 MIL/uL (4.5-6.0); WHITE BLOOD COUNT (AUTO) 10.2 K/uL (4.3-11.0)
[2018-01-13 07:14] LABS: CALCIUM, SERUM 9.4 mg/dL (8.5-10.1); CARBON DIOXIDE 25 mmol/L (21-32); CHLORIDE 98 mmol/L (98-107); CREATININE 9.1 mg/dL (0.6-1.3); GLUCOSE 156 mg/dL (74-106); MAGNESIUM 2.5 mg/dL (1.8-2.4); PHOSPHORUS 5.2 mg/dL (2.5-4.9); POTASSIUM 4.6 mmol/L (3.5-5.1); SODIUM SERUM 138 mmol/L (136-145); UREA NITROGEN, BLOOD 56 mg/dL (7-18)
--- NOTE | 2018-01-13 07:30 | NUR ---
SUKUMAR RN OPENING NOTE PATIENT IN BED, A/O X4, ABLE TO MAKE NEEDS KNOWN, ON NC 2L O2, NO SOB OR DIFFICULTY OF BREATHING NOTED AT THIS TIME, DENIES CHEST PAIN OR ANY KIND OF DISCOMFORT, ON TELEMONITOR SR WITH PVC HR AT 92, R CHEST WALL HEMODIALYSIS CATH IN PLACE, R HAND IV LINE G18, RIGHT AC 18G IV LINE INTACT AND PATENT UPON FLUSHING: SALINE LOCK. PATIENT AMBULATORY WITH ASSIST AND WALKER. CALL LIGHT PLACED WITHIN EASY REACH, SAFETY MEASURES IN PLACE, BED ALARM ON, BED IN LOWEST, LOCKED POSITION. WILL CONTINUE TO MONITOR.
[2018-01-13 08:00] VITALS: BP 166/90
[2018-01-13] MEDS: NIFEdipine XL (30MG) 30 MG TAB PO SCH (08:17)
[2018-01-13] MEDS: AMIODARONE HCL 200 MG TABLET PO SCH (08:17)
[2018-01-13] MEDS: METOPROLOL SUCCINATE 50 MG TAB.SR.24H PO SCH (08:18)
[2018-01-13] MEDS: FUROSEMIDE 40 MG TABLET PO SCH ×2 (08:18→16:50)
[2018-01-13] MEDS: ACETAMINOPHEN 325 MG TABLET PO PRN (08:18)
[2018-01-13] MEDS: LEVOTHYROXINE SODIUM 50 MCG TABLET PO SCH (08:19)
--- NOTE | 2018-01-13 08:20 | NUR ---
WOUND CARE CONSULT: PT PRESENTS WITH INTACT SKIN. PT IS INDEPENDENT WITH BED MOBILITY AND CONTINENT. PT NOTED TO HAVE DISCOLORED NAILS AND LEFT HALLUX NAIL IS MISSING. NO TENDERNESS OR DRAINAGE NOTED. BRUISE NOTED TO RT BUTTOCK. WILL SEE PRN.
[2018-01-13] MEDS: APIXABAN 5 MG TABLET PO SCH ×2 (08:21→21:59)
[2018-01-13] MEDS: BENAZEPRIL HCL 20 MG TABLET PO SCH (08:28)
[2018-01-13] MEDS: ASPIRIN 81 MG TAB.CHEW PO SCH (08:28)
[2018-01-13] MEDS: hydrALAZINE HCL 25 MG TABLET PO SCH ×2 (08:32→16:50)
[2018-01-13] MEDS ORDERED: CT SWABBABLE VALVE TRANS SET 1 EA INFUS.SET MC ONE (09:54)
[2018-01-13] MEDS ORDERED: IOHEXOL-350 100 ML VIAL IV ONE (09:54)
[2018-01-13] MEDS ORDERED: METOPROLOL TARTRATE INJ 5 MG/5 ML AMPUL IVP PRN (10:30)
[2018-01-13] MEDS ORDERED: NITROGLYCERIN 0.4 MG/TAB BOTTLE SL PRN (10:30)
--- NOTE | 2018-01-13 10:30 | NUR ---
RN NOTES PATIENT TAKEN FOR CTA IN STABLE CONDITION .FAMILY IS AT BEDSIDE.NO DISTRESS NOTED AT THIS TIME.
[2018-01-13] MEDS ORDERED: METOPROLOL TARTRATE INJ 5 MG/5 ML AMPUL ONE (11:01)
--- NOTE | 2018-01-13 11:30 | NUR ---
RN NOTES SEEN BY TALKED TO THE FAMILY,UPDATED PATIENT CONDITION.GOT NEW ORDERS.PATIENT BACK FROM CTA IN STABLE CONDITION.ORDERED EARLY LUNCH.WILL CONTINUE TO MONITOR.
[2018-01-13] MEDS: SEVELAMER CARBONATE 800 MG TABLET PO SCH ×3 (11:35→16:50)
[2018-01-13] MEDS: VIT B CMPLX 3/FA/VIT C/BIOTIN 1 TAB TABLET PO SCH (11:36)
[2018-01-13] MEDS: LACTOBACILLUS RHAMNOSUS GG 1 EACH CAP.SPRINK PO SCH ×2 (11:36→16:50)
[2018-01-13 12:00] VITALS: BP 137/68
--- NOTE | 2018-01-13 12:00 | NUR ---
RN NOTES MEDICATIONS GIVEN LATE BECAUSE PATIENT WANT TO TAKE IT AFTER THE CTA
--- NOTE | 2018-01-13 15:00 | NUR ---
RN NOTES REQUESTED FOR ACCU CHECK.GOT NEW ORDERS.
[2018-01-13 16:00] VITALS: BP 133/69
[2018-01-13] MEDS ORDERED: DEXTROSE 50%-WATER 50 ML DISP.SYRIN IV PRN (16:00)
--- NOTE | 2018-01-13 16:00 | NUR ---
RN NOTES CTA RESULT RELAYED TO AND ,TOLD THAT THEY ARE AWARE OF THE RESULT.
[2018-01-13] MEDS: BLOOD SUGAR DIAGNOSTIC 1 EACH STRIP IN SCH ×2 (16:50→22:02)
[2018-01-13] MEDS: INSULIN REGULAR, HUMAN 100 UNIT/ML 3 ML VIAL SQ PRN ×2 (16:54→22:06)
--- NOTE | 2018-01-13 17:55 | NUR ---
RN NOTES SEEN BY MADE AWARE ABOUT PATIENT CONDITION AND RECOMMENDATION FROM RADIOLOGY TO DO DIALYSIS TOADY BECAUSE OF CTA.SCHEDULED FOR DIALYSIS TOMORROW.
--- NOTE | 2018-01-13 19:30 | NUR ---
SUKUMAR RN NOTES RECEIVED BEDSIDE REPORT FROM AM NURSE. PATIENT IN BED, A/O X4, ABLE TO MAKE NEEDS KNOWN, ON NC 2L O2 WITH SPO2 OF 95%, NO SOB OR DIFFICULTY OF BREATHING NOTED AT THIS TIME, DENIES CHEST PAIN OR ANY KIND OF DISCOMFORT, R CHEST WALL HEMODIALYSIS CATH NOTED IN PLACE, R HAND IV LINE G18, RIGHT AC 18G IV LINE INTACT AND PATENT UPON FLUSHING: SALINE LOCK. PATIENT AMBULATORY. ENCOURAGED TO VERBALIZED FEELINGS AND CONCERNS, CALL LIGHT PLACED WITHIN EASY REACH, SAFETY MEASURES IN PLACE, BED ALARM ON, BED IN LOWEST, LOCKED POSITION. WILL CONTINUE TO MONITOR PATIENT CLOSELY.
--- NOTE | 2018-01-13 19:31 | NUR ---
SUKUMAR RN CLOSING NOTE PATIENT IN BED, A/O X4, ABLE TO MAKE NEEDS KNOWN, ON NC 2L O2 NO SOB OR DIFFICULTY OF BREATHING NOTED AT THIS TIME, DENIES CHEST PAIN OR ANY KIND OF DISCOMFORT, R CHEST WALL HEMODIALYSIS CATH IN PLACE, R HAND IV LINE G18, RIGHT AC 18G IV LINE INTACT AND PATENT UPON FLUSHING: SALINE LOCK. PATIENT AMBULATORY WITH ASSIST AND WALKER. CALL LIGHT PLACED WITHIN EASY REACH, SAFETY MEASURES IN PLACE, BED ALARM ON, BED IN LOWEST, LOCKED POSITION.ENDORSED TO PM NURSE FOR DIANE.
[2018-01-13 20:00] VITALS: BP 120/53
[2018-01-13] MEDS: ZOLPIDEM TARTRATE 5 MG TABLET PO PRN (21:59)
[2018-01-13] MEDS: ATORVASTATIN 40 MG TABLET PO SCH (21:59)
--- NOTE | 2018-01-13 22:20 | NUR ---
RECEIVED PATIENT FOR CONTINUE OF CARE , NO CHANGES FROM PREVIOUS ASSESSMENT NOTED CONTINUE TO MONITOR
[2018-01-14] MEDS: ALBUTEROL FS 2.5 MG/3 ML VIAL.NEB NEB SCH ×4 (01:30→20:04)
[2018-01-14 05:00] VITALS: BP 169/85
--- NOTE | 2018-01-14 05:30 | NUR ---
PATIENT'S BP IS HIGH - HYDRALAZINE PRN GIVEN
[2018-01-14] MEDS: AZITHROMYCIN 250 MG TABLET PO SCH (05:41)
[2018-01-14] MEDS: CEFTRIAXONE 1 G in IV D5W 50 ML IV SCH (05:41)
[2018-01-14] MEDS: hydrALAZINE HCL 25 MG TABLET PO PRN (05:43)
[2018-01-14 06:41] LABS: BASOPHILS % (AUTO) 0.3 % (0.0-2.0); EOSINOPHILS % (AUTO) 0.1 % (0.0-6.0); HEMATOCRIT 39 % (39-51); HEMOGLOBIN 12.3 g/dL (13.5-17.5); LYMPHOCYTES # (AUTO) 0.7 /CMM (0.8-4.8); LYMPHOCYTES % (AUTO) 6.4 % (20.0-44.0); MEAN CORPUSCULAR HGB CONC 32 g/dl (31.0-36.0); MEAN CORPUSCULAR VOLUME 93 fL (80-96); MONOCYTES # (AUTO) 0.6 /CMM (0.1-1.30); MONOCYTES % (AUTO) 5.1 % (2.0-12.0); NEUTROPHILS # (AUTO) 9.9 /CMM (1.8-8.9); NEUTROPHILS % (AUTO) 88.1 % (43.0-81.0); PLATELET COUNT (AUTO) 156 /CMM (150-450); RDW COEFFICIENT OF VARIATION 16.5 (11.5-15.0); RED BLOOD CELL COUNT(AUTO) 4.13 MIL/uL (4.5-6.0); WHITE BLOOD COUNT (AUTO) 11.3 K/uL (4.3-11.0)
--- NOTE | 2018-01-14 06:45 | NUR ---
PATIENT C/O ACID REFLEX- MAALOX PRN GIVEN
[2018-01-14] MEDS: MAG HYDROX/AL HYDROX/SIMETH 30 ML UDC PO PRN ×2 (06:46→12:26)
[2018-01-14 06:52] LABS: CALCIUM, SERUM 9.3 mg/dL (8.5-10.1); CARBON DIOXIDE 24 mmol/L (21-32); CHLORIDE 94 mmol/L (98-107); GLUCOSE 141 mg/dL (74-106); MAGNESIUM 2.5 mg/dL (1.8-2.4); PHOSPHORUS 5.9 mg/dL (2.5-4.9); SODIUM SERUM 135 mmol/L (136-145)
[2018-01-14 06:53] LABS: UREA NITROGEN, BLOOD 80 mg/dL (7-18)
[2018-01-14 06:54] LABS: CREATININE 10.5 mg/dL (0.6-1.3)
[2018-01-14] MEDS: LEVOTHYROXINE SODIUM 50 MCG TABLET PO SCH (07:30)
--- NOTE | 2018-01-14 07:55 | NUR ---
RN NOTE: PATIENT RECEIVED ALERT AWAKE ORIENTED X 3. ON 2LPM O2 VIA NC, NO RESPIRATORY DISTRESS NOTED. C/O ABDOMEN DISCOMFORT/ACIDITY, MALOX WAS GIVEN 1 HOUR AGO, WILL CONTINUE TO MONITOR. SAFETY MEASURES OBSERVED. HD CATH & IV LINE INTACT, DRESSING CLEAN & DRY. ENCOURAGE TO USE CALL LIGHT FOR ASSISTANCE. WILL CONTINUE WITH PLAN OF CARE.
[2018-01-14 08:00] VITALS: BP 159/82
[2018-01-14] MEDS: BLOOD SUGAR DIAGNOSTIC 1 EACH STRIP IN SCH ×4 (08:07→21:27)
[2018-01-14] MEDS: ONDANSETRON HCL/PF 4 MG/2 ML VIAL IVP PRN (08:08)
[2018-01-14] MEDS: INSULIN REGULAR, HUMAN 100 UNIT/ML 3 ML VIAL SQ PRN ×4 (08:09→21:30)
[2018-01-14] MEDS: NIFEdipine XL (30MG) 30 MG TAB PO SCH (09:00)
[2018-01-14] MEDS: LACTOBACILLUS RHAMNOSUS GG 1 EACH CAP.SPRINK PO SCH ×2 (09:00→17:31)
[2018-01-14] MEDS: SEVELAMER CARBONATE 800 MG TABLET PO SCH ×3 (09:00→17:31)
[2018-01-14] MEDS: BENAZEPRIL HCL 20 MG TABLET PO SCH (09:00)
[2018-01-14] MEDS: AMIODARONE HCL 200 MG TABLET PO SCH (09:00)
[2018-01-14] MEDS: FUROSEMIDE 40 MG TABLET PO SCH ×2 (09:00→17:32)
[2018-01-14] MEDS: ASPIRIN 81 MG TAB.CHEW PO SCH (09:00)
[2018-01-14] MEDS: METOPROLOL SUCCINATE 50 MG TAB.SR.24H PO SCH (09:00)
[2018-01-14] MEDS: hydrALAZINE HCL 25 MG TABLET PO SCH ×2 (09:00→17:32)
[2018-01-14] MEDS: APIXABAN 5 MG TABLET PO SCH ×2 (09:00→21:25)
[2018-01-14] MEDS: VIT B CMPLX 3/FA/VIT C/BIOTIN 1 TAB TABLET PO SCH (09:00)
--- NOTE | 2018-01-14 11:03 | NUR ---
RN NOTE: PATIENT REFUSED TO TAKE ALL AM MEDICATION DUE TO FEELING OF NAUSEATED, 1 EPISODE OF VOMITING & LOOSE BM. PER PATIENT FEELING BETTER NOW. STILL REFUSED PO MEDS. MD AWARE. WILL CONTINUE TO MONITOR.
[2018-01-14] MEDS ORDERED: AZITHROMYCIN 250 MG TABLET PO ONE (11:30)
[2018-01-14] MEDS ORDERED: CEFTRIAXONE 1 G in IV D5W 50 ML IV SCH (11:30)
[2018-01-14 16:00] VITALS: BP 164/90
[2018-01-14 20:00] VITALS: BP 158/77
--- NOTE | 2018-01-14 20:00 | NUR ---
RN INITIAL NOTES RECEIVED PATIENT IN BED, A/O X4, ABLE TO MAKE NEEDS KNOWN, ON NC 2L O2 WITH SPO2 OF 95%, NO SOB OR DIFFICULTY OF BREATHING NOTED AT THIS TIME, R CHEST WALL HEMODIALYSIS CATH NOTED IN PLACE, R HAND IV LINE G18 S/L, RIGHT AC 18G IV LINE INTACT AND PATENT UPON FLUSHING: SALINE LOCK. ALL SAFETY PRECAUTIONS TAKEN. WILL CONTINUE TO MONITOR PATIENT CLOSELY.
[2018-01-14] MEDS: ATORVASTATIN 40 MG TABLET PO SCH (21:25)
[2018-01-15] VITALS: BP_SYST 145; BP_SYST 162; BP_DIAS 80; BP_DIAS 82
[2018-01-15] MEDS: ZOLPIDEM TARTRATE 5 MG TABLET PO PRN ×2 (01:31→20:29)
[2018-01-15] MEDS: ALBUTEROL FS 2.5 MG/3 ML VIAL.NEB NEB SCH ×4 (02:01→19:42)
[2018-01-15 04:00] VITALS: BP 162/85
--- NOTE | 2018-01-15 04:34 | NUR ---
RN NOTES PT B/S @2128 WAS 180, PT REFUSED 3 UNITS OF INSULIN ORDERED ON THE SLIDING SCALE.
[2018-01-15] MEDS: AZITHROMYCIN 250 MG TABLET PO SCH (05:22)
[2018-01-15] MEDS: CEFTRIAXONE 1 G in IV D5W 50 ML IV SCH (05:32)
--- NOTE | 2018-01-15 06:56 | NUR ---
RN CLOSING NOTES PATIENT REMAINED STABLE FOR THE ENTIRE SHIFT. NO ACUTE CHANGES NOTED. ALL NEEDS MET. ALL MEDICATION GIVEN. CALL LIGHT WITHIN REACH AT ALL TIME. SAFETY MEASURES KEPT IN PLACE. WILL ENDORSE TO AM SHIFT.
[2018-01-15 07:15] LABS: BASOPHILS % (AUTO) 0.1 % (0.0-2.0); EOSINOPHILS % (AUTO) 0.1 % (0.0-6.0); HEMATOCRIT 38 % (39-51); HEMOGLOBIN 12.4 g/dL (13.5-17.5); LYMPHOCYTES # (AUTO) 0.4 /CMM (0.8-4.8); LYMPHOCYTES % (AUTO) 3.6 % (20.0-44.0); MEAN CORPUSCULAR HGB CONC 33 g/dl (31.0-36.0); MEAN CORPUSCULAR VOLUME 93 fL (80-96); MONOCYTES # (AUTO) 0.6 /CMM (0.1-1.30); MONOCYTES % (AUTO) 5.4 % (2.0-12.0); NEUTROPHILS # (AUTO) 9.5 /CMM (1.8-8.9); NEUTROPHILS % (AUTO) 90.8 % (43.0-81.0); PLATELET COUNT (AUTO) 178 /CMM (150-450); RDW COEFFICIENT OF VARIATION 16.8 (11.5-15.0); WHITE BLOOD COUNT (AUTO) 10.4 K/uL (4.3-11.0)
[2018-01-15 07:34] LABS: CALCIUM, SERUM 8.9 mg/dL (8.5-10.1); CARBON DIOXIDE 21 mmol/L (21-32); CHLORIDE 89 mmol/L (98-107); GLUCOSE 231 mg/dL (74-106); POTASSIUM 5.6 mmol/L (3.5-5.1); SODIUM SERUM 132 mmol/L (136-145)
--- NOTE | 2018-01-15 07:35 | NUR ---
RN OPENING NOTES RECEIVED PT. A/OX3, PRIMARILY UKRAINIAN SPEAKING. PT HAS C/O N/V, HOWEVER IS REFUSING MEDICAL MANAGEMENT. AM LABS SHOW ELEVATED BUN/CREAT, EXPECTING THAT PT WILL NEED HD. NO C/O PAIN AT THIS TIME. SAFETY MEASURES IN PLACE, CALL LIGHT WITHIN REACH. WILL CONTINUE TO MONITOR.
[2018-01-15 07:46] LABS: CREATININE 11.7 mg/dL (0.6-1.3); UREA NITROGEN, BLOOD 112 mg/dL (7-18)
[2018-01-15 08:00] VITALS: BP_SYST 124; BP_SYST 144; BP_DIAS 51; BP_DIAS 69
[2018-01-15] MEDS: BENAZEPRIL HCL 20 MG TABLET PO SCH (09:00)
[2018-01-15] MEDS: NIFEdipine XL (30MG) 30 MG TAB PO SCH (09:00)
[2018-01-15] MEDS: hydrALAZINE HCL 25 MG TABLET PO SCH ×2 (09:00→16:59)
[2018-01-15] MEDS: METOPROLOL SUCCINATE 50 MG TAB.SR.24H PO SCH (09:00)
--- NOTE | 2018-01-15 09:00 | NUR ---
RN NOTES PT REFUSING HD TODAY 01/15. STATING THAT HE IS TOO TIRED FOR HD TODAY, EDUCATION PERFORMED. PT INFORMED THAT S/S LIKELY R/T ELEVATED LABS, HD TO PROVIDE RELIEF, PT VERBALIZES UNDERSTANDING AND AGREES TO HD. WILL CONTINUE TO MONITOR.
[2018-01-15] MEDS: INSULIN REGULAR, HUMAN 100 UNIT/ML 3 ML VIAL SQ PRN ×2 (09:04→21:07)
[2018-01-15] MEDS: BLOOD SUGAR DIAGNOSTIC 1 EACH STRIP IN SCH ×4 (09:05→21:02)
[2018-01-15] MEDS: LACTOBACILLUS RHAMNOSUS GG 1 EACH CAP.SPRINK PO SCH ×2 (09:05→16:58)
[2018-01-15] MEDS: LEVOTHYROXINE SODIUM 50 MCG TABLET PO SCH (09:06)
[2018-01-15] MEDS: SEVELAMER CARBONATE 800 MG TABLET PO SCH ×3 (09:06→16:59)
[2018-01-15] MEDS: VIT B CMPLX 3/FA/VIT C/BIOTIN 1 TAB TABLET PO SCH (09:07)
[2018-01-15] MEDS: ASPIRIN 81 MG TAB.CHEW PO SCH (09:07)
[2018-01-15] MEDS: FUROSEMIDE 40 MG TABLET PO SCH ×2 (09:07→16:59)
[2018-01-15] MEDS: APIXABAN 5 MG TABLET PO SCH ×2 (09:25→20:14)
[2018-01-15] MEDS: AMIODARONE HCL 200 MG TABLET PO SCH (09:25)
[2018-01-15] MEDS ORDERED: AZITHROMYCIN 250 MG TABLET PO SCH (11:30)
[2018-01-15 12:00] VITALS: BP 134/80
--- NOTE | 2018-01-15 12:30 | NUR ---
RN NOTES HD COMPLETED WITH 1L OUTPUT. PT STATING THAT HE IS FEELING SICK/NAUSEOUS. REQUESTING INCREASED O2 AND ADULT MASK, ALTHOUGH O2 SAT WNL, RESPIRATIONS EVEN/UNLABORED. WILL CONTINUE TO MONITOR.
[2018-01-15 16:00] VITALS: BP 156/87
--- NOTE | 2018-01-15 19:19 | NUR ---
RN CLOSING NOTES PT IN BED RESTING. ALL PT NEEDS ANTICIPATED AND MET. SAFETY MEASURES IN PLACE, CALL LIGHT WITHIN REACH. WILL ENDORSE TO WOOD HEEL FLAP RUBBER FOR DIANE.
[2018-01-15] MEDS: ONDANSETRON HCL/PF 4 MG/2 ML VIAL IVP PRN (19:33)
[2018-01-15 20:00] VITALS: BP 168/86
[2018-01-15] MEDS: hydrALAZINE HCL 25 MG TABLET PO PRN (20:17)
[2018-01-15] MEDS: ATORVASTATIN 40 MG TABLET PO SCH (21:03)
[2018-01-16] VITALS (7 sets, daily range): BP systolic 103–184; BP diastolic 30–96
[2018-01-16] MEDS: ALBUTEROL FS 2.5 MG/3 ML VIAL.NEB NEB SCH ×4 (01:39→19:45)
[2018-01-16] MEDS: AZITHROMYCIN 250 MG TABLET PO SCH (05:50)
[2018-01-16] MEDS: hydrALAZINE HCL 25 MG TABLET PO PRN (05:50)
[2018-01-16] MEDS: CEFTRIAXONE 1 G in IV D5W 50 ML IV SCH (05:54)
--- NOTE | 2018-01-16 07:30 | NUR ---
RECEIVED PT. THIS AM,ALERT AND ORIENTED X4.AGITATED RN ATTEMPTING TO AWAKEN HIM,TO CHECK BGL.
--- NOTE | 2018-01-16 07:39 | NUR ---
RT PATIENT RESTING COMFORTABLY IN BED WITH ZERO SOB OR DISTRESS. PATIENT REFUSED RESP TX AND JUST WANTED TO REST.
[2018-01-16] MEDS: BLOOD SUGAR DIAGNOSTIC 1 EACH STRIP IN SCH ×4 (07:56→21:31)
[2018-01-16 08:27] LABS: BASOPHILS % (AUTO) 0.2 % (0.0-2.0); EOSINOPHILS % (AUTO) 0.1 % (0.0-6.0); HEMATOCRIT 37 % (39-51); HEMOGLOBIN 11.9 g/dL (13.5-17.5); LYMPHOCYTES # (AUTO) 0.5 /CMM (0.8-4.8); LYMPHOCYTES % (AUTO) 4.6 % (20.0-44.0); MEAN CORPUSCULAR HGB CONC 32 g/dl (31.0-36.0); MEAN CORPUSCULAR VOLUME 92 fL (80-96); MONOCYTES # (AUTO) 0.8 /CMM (0.1-1.30); NEUTROPHILS # (AUTO) 10.3 /CMM (1.8-8.9); NEUTROPHILS % (AUTO) 88.1 % (43.0-81.0); PLATELET COUNT (AUTO) 186 /CMM (150-450); RDW COEFFICIENT OF VARIATION 16.3 (11.5-15.0); RED BLOOD CELL COUNT(AUTO) 4.03 MIL/uL (4.5-6.0); WHITE BLOOD COUNT (AUTO) 11.6 K/uL (4.3-11.0)
[2018-01-16] MEDS: SEVELAMER CARBONATE 800 MG TABLET PO SCH ×5 (08:28→17:00)
[2018-01-16] MEDS: ASPIRIN 81 MG TAB.CHEW PO SCH ×2 (08:28→08:42)
[2018-01-16] MEDS: FUROSEMIDE 40 MG TABLET PO SCH ×2 (08:28→17:41)
[2018-01-16] MEDS: AMIODARONE HCL 200 MG TABLET PO SCH (08:29)
[2018-01-16] MEDS: LACTOBACILLUS RHAMNOSUS GG 1 EACH CAP.SPRINK PO SCH ×2 (08:29→17:40)
[2018-01-16] MEDS: LEVOTHYROXINE SODIUM 50 MCG TABLET PO SCH (08:29)
[2018-01-16] MEDS: VIT B CMPLX 3/FA/VIT C/BIOTIN 1 TAB TABLET PO SCH (08:30)
[2018-01-16] MEDS: BENAZEPRIL HCL 20 MG TABLET PO SCH ×2 (08:30→08:42)
[2018-01-16 08:32] LABS: CALCIUM, SERUM 9.3 mg/dL (8.5-10.1); CARBON DIOXIDE 25 mmol/L (21-32); CHLORIDE 92 mmol/L (98-107); GLUCOSE 267 mg/dL (74-106); MAGNESIUM 2.7 mg/dL (1.8-2.4); POTASSIUM 4.9 mmol/L (3.5-5.1); SODIUM SERUM 134 mmol/L (136-145)
[2018-01-16 08:35] LABS: UREA NITROGEN, BLOOD 99 mg/dL (7-18)
[2018-01-16] MEDS: NIFEdipine XL (30MG) 30 MG TAB PO SCH (08:47)
[2018-01-16] MEDS: APIXABAN 5 MG TABLET PO SCH ×2 (09:00→21:26)
--- NOTE | 2018-01-16 10:30 | NUR ---
denies pain but requesting ice pack for back of neck and lower back.
[2018-01-16] MEDS: ONDANSETRON HCL/PF 4 MG/2 ML VIAL IVP PRN (12:21)
--- NOTE | 2018-01-16 12:21 | NUR ---
med. with zofran for nausea,found out pt. had an earlier emesis episode reach he revealed to the deck builder.
[2018-01-16] MEDS: NEPRO VAN 237 ML CAN PO SCH ×3 (12:29→12:50)
--- NOTE | 2018-01-16 13:34 | NUR ---
RT PATIENT REFUSED RESP HHN TX. PATIENT DID NOT WANT ANY TX'S. NO SOB NOTED, PATIENT AWAKE, ALERT, AGITATED.
[2018-01-16] MEDS: METOPROLOL SUCCINATE 50 MG TAB.SR.24H PO SCH (13:46)
[2018-01-16] MEDS: hydrALAZINE HCL 25 MG TABLET PO SCH ×2 (13:46→16:42)
--- NOTE | 2018-01-16 15:14 | NUR ---
not eating-insulin withheld x 2 today.
[2018-01-16] MEDS: INSULIN REGULAR, HUMAN 100 UNIT/ML 3 ML VIAL SQ PRN ×2 (17:47→21:41)
--- NOTE | 2018-01-16 19:15 | NUR ---
RN INITIAL NOTES Received patient sitting up in bed, alert, oriented x 3. Not in any distress. Has supplemental O2 via NC at 4L saturating at 98%. No complaints as of this time. Call dang within reach. Bed in low, locked position. Patient stable as endorsed by the morning shift RN. Will continue to monitor accordingly.
[2018-01-16] MEDS: ATORVASTATIN 40 MG TABLET PO SCH (21:27)
[2018-01-16] MEDS: ZOLPIDEM TARTRATE 5 MG TABLET PO PRN (21:27)
--- NOTE | 2018-01-16 21:42 | NUR ---
RN NOTES Blood sugar checked- 236mg/dL. 4 units of regular insulin given as per sliding scale
[2018-01-17] MEDS: ALBUTEROL FS 2.5 MG/3 ML VIAL.NEB NEB SCH ×4 (00:57→20:05)
[2018-01-17] MEDS: AZITHROMYCIN 250 MG TABLET PO SCH (05:37)
[2018-01-17] MEDS: CEFTRIAXONE 1 G in IV D5W 50 ML IV SCH (05:39)
--- NOTE | 2018-01-17 06:35 | NUR ---
RN CLOSING NOTES Patient sitting up in bed, alert, oriented x 3. Breathing even and unlabored. On O2 via NC. No complaints as of this time. Patient has not voided this shift. All needs attended to. All due medications given as ordered. Call dang within reach. Bed in low, locked position. Will endorse continuity of care to oncoming RN
--- NOTE | 2018-01-17 07:30 | NUR ---
PT RECEIVED RESTING COMFORTABLY WITH EYES CLOSED. NO S/S OR C/O PAIN OR DISTRESS NOTED. SIDE RAILS UP X2 CALL LIGHT LEFT WITHIN REACH. WILL CONTINUE PLAN OF CARE.
[2018-01-17 07:33] LABS: HEMATOCRIT 31 % (39-51); HEMOGLOBIN 9.8 g/dL (13.5-17.5); LYMPHOCYTES # (AUTO) 0.5 /CMM (0.8-4.8); LYMPHOCYTES % (AUTO) 3.6 % (20.0-44.0); MEAN CORPUSCULAR HGB CONC 32 g/dl (31.0-36.0); MEAN CORPUSCULAR VOLUME 92 fL (80-96); MONOCYTES # (AUTO) 0.8 /CMM (0.1-1.30); NEUTROPHILS # (AUTO) 11.9 /CMM (1.8-8.9); NEUTROPHILS % (AUTO) 90.4 % (43.0-81.0); PLATELET COUNT (AUTO) 189 /CMM (150-450); RDW COEFFICIENT OF VARIATION 16.4 (11.5-15.0); WHITE BLOOD COUNT (AUTO) 13.2 K/uL (4.3-11.0)
[2018-01-17 08:00] VITALS: BP 129/69
[2018-01-17 08:06] LABS: CALCIUM, SERUM 8.9 mg/dL (8.5-10.1); CARBON DIOXIDE 27 mmol/L (21-32); CHLORIDE 93 mmol/L (98-107); CREATININE 6.9 mg/dL (0.6-1.3); GLUCOSE 325 mg/dL (74-106); POTASSIUM 4.2 mmol/L (3.5-5.1); SODIUM SERUM 132 mmol/L (136-145)
[2018-01-17] MEDS: APIXABAN 5 MG TABLET PO SCH ×2 (08:19→21:44)
[2018-01-17] MEDS: METOPROLOL SUCCINATE 50 MG TAB.SR.24H PO SCH (08:20)
[2018-01-17] MEDS: AMIODARONE HCL 200 MG TABLET PO SCH (08:20)
[2018-01-17] MEDS: LACTOBACILLUS RHAMNOSUS GG 1 EACH CAP.SPRINK PO SCH ×2 (08:20→16:26)
[2018-01-17] MEDS: LEVOTHYROXINE SODIUM 50 MCG TABLET PO SCH (08:20)
[2018-01-17] MEDS: hydrALAZINE HCL 25 MG TABLET PO SCH ×2 (08:21→16:29)
[2018-01-17] MEDS: FUROSEMIDE 40 MG TABLET PO SCH ×2 (08:21→16:26)
[2018-01-17] MEDS: NIFEdipine XL (30MG) 30 MG TAB PO SCH (08:21)
[2018-01-17] MEDS: VIT B CMPLX 3/FA/VIT C/BIOTIN 1 TAB TABLET PO SCH (08:21)
[2018-01-17] MEDS: BLOOD SUGAR DIAGNOSTIC 1 EACH STRIP IN SCH ×4 (08:24→21:44)
[2018-01-17] MEDS: INSULIN REGULAR, HUMAN 100 UNIT/ML 3 ML VIAL SQ PRN ×4 (08:34→21:53)
[2018-01-17] MEDS: ASPIRIN 81 MG TAB.CHEW PO SCH (08:44)
[2018-01-17] MEDS: BENAZEPRIL HCL 20 MG TABLET PO SCH (08:44)
[2018-01-17] MEDS: SEVELAMER CARBONATE 800 MG TABLET PO SCH ×3 (08:45→16:26)
[2018-01-17] MEDS ORDERED: NEPRO VAN 237 ML CAN PO SCH (09:00)
[2018-01-17] MEDS: NEPRO VAN 237 ML CAN PO SCH (09:00)
[2018-01-17 10:51] LABS: UREA NITROGEN, BLOOD 97 mg/dL (7-18)
[2018-01-17 14:00] VITALS: BP 125/66
--- NOTE | 2018-01-17 18:39 | NUR ---
CHANGE OF SHIFT REPORT PT RESTING COMFORTABLY IN BED. NO S/S OR C/O PAIN OR DISTRESS NOTED. SIDE RAILS UP X2, CALL LIGHT LEFT WITHIN REACH. PT KEPT CLEAN, DRY, AND COMFORTABLE. NO SIGNIFICANT CHANGES SINCE PREVIOUS SHIFT. WILL GIVE REPORT TO ALONZO BROCK.
--- NOTE | 2018-01-17 19:30 | NUR ---
RN NOTE; RECEIVED THE PT IN BED W/ SISTER AT THE BED SIDE, BREATHING EVENLY. NO SOB. NAD . NO C/O PAIN OR DISCOMFORT. NEEDS ATTENDED. BED LOW LOCKED. CALL LIGHT WITHIN REACH,. WILL CONT TO MONITOR,
[2018-01-17 20:00] VITALS: BP 123/50
[2018-01-17] MEDS: ATORVASTATIN 40 MG TABLET PO SCH (21:44)
[2018-01-17] MEDS: ZOLPIDEM TARTRATE 5 MG TABLET PO PRN (21:55)
--- NOTE | 2018-01-17 21:55 | NUR ---
SHREYAIEN GIVEN ORDERED PER PT'S REQUEST FOR C/O INSOMNIA. WILL CONT TO MONITOR,
[2018-01-18] VITALS (9 sets, daily range): BP systolic 64–108; BP diastolic 37–59
[2018-01-18] MEDS: ALBUTEROL FS 2.5 MG/3 ML VIAL.NEB NEB SCH ×4 (01:30→19:22)
--- NOTE | 2018-01-18 01:55 | NUR ---
PT IS INSISTING TO SIT ON THE CHAIR AND REFUSING TO GO BACK IN BED. PT WAS EDUCATED ABOUT HIS WEAKNESS AND FALL PRECAUTION STILL PT REFUSED , GOT IRRITATED AND ANGRY AND STATED HE WANT TO STAY ON THE CHAIR. CALL LIGHT GIVEN TO THE PT AND REMAINED WITHIN REACH,.
--- NOTE | 2018-01-18 02:22 | NUR ---
FOUND PT SITTING ON THE FLOOR. REMAINED ALERT AND ORIENTED X3. NO ALOC, NO AMS. BREATHING EVENLY. PT WAS ASSISTED BACK IN BED . A TOTAL BODY ASSESSMENT WAS DONE AND ASKED PT HOW HE ENDED UP SITTING IN THE FLOOR. PT STATED HE SLOWLY LANDED ON THE FLOOR WHEN HE WAS TRYING TO TRANSFER HIMSELF. PT DENIED ANY PAIN OR DISCOMFORT AT THIS TIME. DENIED HITTING HIS HEAD OR ANY OTHER BODY AREA. NO SKIN ISSUE , SKIN TEAR OR REDNESS NOTED AT THIS TIME. ABLE TO MOVE ALL HIS 4 EXTREMITIES. VITAL SIGNS STABLE. /HOLDING O2 SAT OF 97% WITH NO SOB. PT WAS ENCOURAGED TO REMAIN IN BED, ASK FOR ASSISTANCE AND USE THE CALL LIGHT AT ALL TIME. NEEDS MET . BED LOW LOCKED. SRX3. CALL LIGHT WITHIN REACH. WILL CONT TO MONITOR , CHARGE NURSE MADE AWARE, AND PRESENT AT THE BED SIDE .
--- NOTE | 2018-01-18 02:43 | NUR ---
PT LAYING DOWN COMFORTABLY IN BED WITH NO DISTRESS. NO S/S OF PAIN OR DISCOMFORT, WILL CONT TO MONITOR,
[2018-01-18] MEDS: AZITHROMYCIN 250 MG TABLET PO SCH (05:04)
--- NOTE | 2018-01-18 06:36 | NUR ---
PT LAYING IN BED RESTING COMFORTABLY. BREATHING EVENLY. NO SOB. NAD. WITH ANXIETY EPISODES DURING THE NIGHT. CONSTANTLY TRYING TO GET OOB. SPOKE TO THE PT AND TRIED TO CALM HIM DOWN . S/P FOUND SITTING ON THE FLOOR W/ NO COMPLICATIONS . ALL NEEDS ATTENDED. BED LOW LOCKED. CALL LIGHT WITHIN REACH, WILL CONT TO MONITOR AND WILL ENDORSE TO AM SHIFT FOR DIANE,
[2018-01-18 06:58] LABS: BASOPHILS % (AUTO) 0.1 % (0.0-2.0); EOSINOPHILS % (AUTO) 0.2 % (0.0-6.0); HEMATOCRIT 23 % (39-51); HEMOGLOBIN 7.5 g/dL (13.5-17.5); LYMPHOCYTES # (AUTO) 0.9 /CMM (0.8-4.8); LYMPHOCYTES % (AUTO) 5.5 % (20.0-44.0); MEAN CORPUSCULAR HGB CONC 33 g/dl (31.0-36.0); MEAN CORPUSCULAR VOLUME 92 fL (80-96); MONOCYTES # (AUTO) 0.9 /CMM (0.1-1.30); MONOCYTES % (AUTO) 5.4 % (2.0-12.0); NEUTROPHILS # (AUTO) 14.4 /CMM (1.8-8.9); NEUTROPHILS % (AUTO) 88.8 % (43.0-81.0); PLATELET COUNT (AUTO) 184 /CMM (150-450); RDW COEFFICIENT OF VARIATION 16.6 (11.5-15.0); WHITE BLOOD COUNT (AUTO) 16.3 K/uL (4.3-11.0)
--- NOTE | 2018-01-18 07:00 | NUR ---
MS RN NOTES RECEIVED PT IN BED, A/OX4. ON 4LO2. IV SITE HL NO S/SX OF INFECTION. NO ADVENTITIOUS BREATH SOUNDS NOTED. PT IS NOT IN PAIN/RESP DISTRESS. PT WANTED ICE PACK. PROVIDED TO PATIENT. SAFETY PRECAUTIONS MAINTAINED. CALL LIGHT IN REACH. WILL CONT TO MONITOR.
[2018-01-18 07:22] LABS: CALCIUM, SERUM 8.6 mg/dL (8.5-10.1); CARBON DIOXIDE 24 mmol/L (21-32); CHLORIDE 90 mmol/L (98-107); GLUCOSE 332 mg/dL (74-106); MAGNESIUM 2.5 mg/dL (1.8-2.4); PHOSPHORUS 4.3 mg/dL (2.5-4.9); POTASSIUM 4.7 mmol/L (3.5-5.1); SODIUM SERUM 130 mmol/L (136-145)
[2018-01-18 07:24] LABS: CREATININE 7.7 mg/dL (0.6-1.3); UREA NITROGEN, BLOOD 135 mg/dL (7-18)
[2018-01-18] MEDS: BLOOD SUGAR DIAGNOSTIC 1 EACH STRIP IN SCH ×4 (07:36→21:18)
[2018-01-18] MEDS: INSULIN REGULAR, HUMAN 100 UNIT/ML 3 ML VIAL SQ PRN ×3 (07:42→21:26)
--- NOTE | 2018-01-18 08:30 | NUR ---
MS RN NOTES PT'S BP DROPPED TO SYSTOLIC 70'S DURING HD. HD NURSE ADMINISTERED ALBUMIN PER MD ORDER. WILL CONT TO MONITOR
[2018-01-18] MEDS ORDERED: ALBUMIN 25% 25 GM in PREMIX 1 EA IV PRN (09:00)
[2018-01-18] MEDS: METOPROLOL SUCCINATE 50 MG TAB.SR.24H PO SCH (09:00)
[2018-01-18] MEDS: FUROSEMIDE 40 MG TABLET PO SCH ×2 (09:00→17:00)
[2018-01-18] MEDS: NIFEdipine XL (30MG) 30 MG TAB PO SCH (09:00)
[2018-01-18] MEDS: AMIODARONE HCL 200 MG TABLET PO SCH (09:00)
[2018-01-18] MEDS: hydrALAZINE HCL 25 MG TABLET PO SCH ×2 (09:00→17:00)
[2018-01-18] MEDS: BENAZEPRIL HCL 20 MG TABLET PO SCH (09:00)
[2018-01-18 10:18] LABS: IRON, SERUM 34 ug/dl (50-175); TOTAL IRON BINDING CAPACITY 114 ug/dl (250-450)
--- NOTE | 2018-01-18 10:30 | NUR ---
MS RN NOTES PT EVAL DONE BY GARETT. PT WAS TOO WEAK TO SIT OR STAND AT THIS TIME. PT JUST COMPLETED HD. BLOOD PRESSURE IS 88/49. REQUIRES O2 AT 8LPM TO MAINTAIN O2 ABOVE 94%. NO BLOOD PRESSURE MEDS GIVEN THIS MORNING. WILL CONT TO MONITOR.
[2018-01-18 10:31] LABS: FERRITIN 835 ng/mL (8-388)
[2018-01-18] MEDS: SEVELAMER CARBONATE 800 MG TABLET PO SCH ×3 (10:53→17:27)
[2018-01-18] MEDS: ASPIRIN 81 MG TAB.CHEW PO SCH (10:53)
[2018-01-18] MEDS: VIT B CMPLX 3/FA/VIT C/BIOTIN 1 TAB TABLET PO SCH (10:53)
[2018-01-18] MEDS: LEVOTHYROXINE SODIUM 50 MCG TABLET PO SCH (10:53)
[2018-01-18] MEDS: LACTOBACILLUS RHAMNOSUS GG 1 EACH CAP.SPRINK PO SCH ×2 (10:53→17:27)
[2018-01-18] MEDS: APIXABAN 5 MG TABLET PO SCH ×2 (11:14→20:51)
[2018-01-18] MEDS: NEPRO VAN 237 ML CAN PO SCH (12:37)
--- NOTE | 2018-01-18 15:00 | NUR ---
MS RN NOTES DR MENON NOTIFIED OF PT'S DIZZINESS, WEAKNESS, AND CONFUSION. WILL IMPLEMENT ORDER AND MONITOR CLOSELY.
[2018-01-18] MEDS ORDERED: IV NS 0.9% 500 ML IV ONE (15:30)
--- NOTE | 2018-01-18 18:00 | NUR ---
MS RN NOTES DR MENON NOTIFIED OF LOOSE BLACK STOOL X4 AND CONFUSION. NO NEW ORDERS. WILL CONT TO MONITOR CLOSELY.
--- NOTE | 2018-01-18 19:25 | NUR ---
MS RN NOTES PT ENDORSED TO PM NURSE FOR DIANE. PT CONTINUING TO HAVE LOOSE BLACK BM. PT IS CONFUSED. DR IS AWARE. SAFETY PRECAUTIONS MAINTAINED. CALL LIGHT IN REACH.
--- NOTE | 2018-01-18 19:40 | NUR ---
RN MS INITIAL NOTES, RECEIVED PATIENT IN BED, AWAKE ALERT AND ORIENTED TO SELF, BREATHING EVEN AND UNLABORED NO S/S OF SOB/ ACUTE DISTRESS OR DISCOMFORT NOTED AT THIS TIME, SISTER AT BEDSIDE, RIGHT HAND IV ACCESS INTACT ND PATENT, RCW HD CATH IN PLACE INTACT NO BLEEDING NOTED, ALL NEEDS ATTENDED, DRY AND CLEAN AND REPOSITIONED AT THIS TIME, SITTER AT BEDSIDE, WILL CONTINUE TO MONITOR CLOSELY.
--- NOTE | 2018-01-18 20:30 | NUR ---
[address] TSAI REGARDING STATUS OF PATIENT AND HE SAID OK TO UPGRADE PT. TO TELEMETRY. ORDER NOTED AND CARRIED OUT.
[2018-01-18 20:47] LABS: HEMOGLOBIN 5.3 g/dL (13.5-17.5)
[2018-01-18 20:50] LABS: OCCULT BLOOD STOOL POSITIVE (NEGATIVE)
--- NOTE | 2018-01-18 20:50 | NUR ---
2049 STAT CBC RESULT HGB 5.3 AND HCT 17.[address] TSAI. AWAITING CALL BACK FOR ORDERS.
--- NOTE | 2018-01-18 21:00 | NUR ---
DENSITY CONTROL PUNCHER NOTES, RECEIVED NEW ORDER FROM DR TSAI TO GIVE 2 UNITS PRBC STAT, NOTED AND CARRIED OUT.
[2018-01-18] MEDS: ATORVASTATIN 40 MG TABLET PO SCH (21:19)
[2018-01-18] MEDS ORDERED: ETOMIDATE 2 MG/ML VIAL IV ONE (22:00)
[2018-01-18] MEDS ORDERED: SUCCINYLCHOLINE CHLORIDE 20 MG/ML VIAL IV ONE (22:00)
--- NOTE | 2018-01-18 22:00 | NUR ---
RN NOTES, NO SLIDING SCALE INSULIN COVERAGE ADMINISTRATED DUE TO PATIENT DIDN'T EAT WELL AND DINNER WITH POOR APPETITE ACCORDING TO PRIOR NURSE REPORT.
--- NOTE | 2018-01-18 22:30 | NUR ---
2230 SBP 71/41 WHEN CHECKED PRIOR TO BLOOD TRANSFUSION, RE- CHECKED AND OBTAINED 66/37, PT. NOTED HARD TO AROUSE, O2 SATURATION 97% WHEN CHECKED, DR. TSAI NOTIFIED, AWAITING CALL BACK. BLOOD TRANSFUSION STARTED ORDERED.
--- NOTE | 2018-01-18 22:32 | NUR ---
2232 CALLED ICU AND SPOKE WITH CHARGE NURSE SHAHAB REGARDING POSSIBLE TRANSFER OF PT. TO ICU, STILL WAITING FOR DR. TSAI TO CALL BACK.
--- NOTE | 2018-01-18 22:35 | NUR ---
2235 DR. TSAI AT BEDSIDE ASSESSING PT. WITH ORDER TO TRANSFER PT. TO ICU. TRANSFERRED PT ON ACLS PROTOCOL.
--- NOTE | 2018-01-18 22:45 | NUR ---
CASING BUILDER NOTES, NOTED PATIENT WITH BP 71/41, HR 58 BEFORE DE ADMINISTRATION OF BLOOD, STARTED BLOOD TRANSFUSION AND INFORMED DR TSAI ABOUT PATIENT'S CONDITION, AND RECEIVED A NEW ORDER TO TANZER PATIENT TO ICU UNIT STAT.
[2018-01-18] MEDS ORDERED: NOREPINEPHRINE 4 MG/4 ML AMPUL IV ONE (22:46)
--- NOTE | 2018-01-18 22:50 | NUR ---
5760 REPORT GIVEN TO CLINICAL QUALITY ASSURANCE SPECIALIST LITA AT BEDSIDE WITH QUESTIONS ANSWERED.
--- NOTE | 2018-01-18 22:52 | NUR ---
INTERNATIONAL PROJECT MANAGER NOTES, CALLED SISTER JANIE ALEJANDRE THAT PATIENT WAS TRANSFER STAT TO ICU, VERBALIZED UNDERSTANDING.
--- NOTE | 2018-01-18 23:11 | NUR ---
RT PT INTUBATED WITH ETT 7.5 @22 CM ON THE LIP. PT PLACED ON [facility] VENT ON SETTINGS AC 14, VT 500, FIO2 100%, PEEP 0. ALARMS SET AND AUDIBLE. AMBUBAG AT BEDSIDE. VENT CONNECTED TO RED OUTLET. Addendum: 01/18/18 at 2316 by BYRON HOBSON RT Amended: Links added.
[2018-01-18] MEDS ORDERED: PROPOFOL 100 ML ONE (23:23)
[2018-01-18 23:25] LABS: BASOPHILS # (AUTO) 0.1 /CMM (0.0-0.2); BASOPHILS % (AUTO) 0.5 % (0.0-2.0); LYMPHOCYTES # (AUTO) 0.8 /CMM (0.8-4.8); LYMPHOCYTES % (AUTO) 5.5 % (20.0-44.0); MEAN CORPUSCULAR HGB CONC 32 g/dl (31.0-36.0); MEAN CORPUSCULAR VOLUME 91 fL (80-96); MONOCYTES # (AUTO) 0.8 /CMM (0.1-1.30); MONOCYTES % (AUTO) 5.5 % (2.0-12.0); NEUTROPHILS # (AUTO) 13.5 /CMM (1.8-8.9); NEUTROPHILS % (AUTO) 88.5 % (43.0-81.0); PLATELET COUNT (AUTO) 170 /CMM (150-450); RDW COEFFICIENT OF VARIATION 17.3 (11.5-15.0); RED BLOOD CELL COUNT(AUTO) 2.21 MIL/uL (4.5-6.0); WHITE BLOOD COUNT (AUTO) 15.3 K/uL (4.3-11.0)
[2018-01-18 23:27] LABS: HEMOGLOBIN 6.4 g/dL (13.5-17.5)
[2018-01-18 23:28] LABS: HEMATOCRIT 20 % (39-51)
[2018-01-18] MEDS ORDERED: IV NS 0.9% 1,000 ML IV ONE (23:30)
[2018-01-18 23:38] LABS: CALCIUM, SERUM 8.2 mg/dL (8.5-10.1); CARBON DIOXIDE 13 mmol/L (21-32); CHLORIDE 97 mmol/L (98-107); CREATININE 6.7 mg/dL (0.6-1.3); GLUCOSE 112 mg/dL (74-106); SODIUM SERUM 136 mmol/L (136-145)
[2018-01-18] MEDS: NOREPINEPHRINE 16 MG in IV D5W 500 ML IV PRN (23:39)
--- NOTE | 2018-01-18 23:45 | NUR ---
GAS FITTER HELPER. PT TRANSFER FROM SUKUMAR AT 2240. PT IS BEING AGONAL BREATHING, DR TASI AT BED SIDE, ER MD LEMUS INTUBATED. AT 2252. ETOMIDATE 20MG,SUCCINYLCHOLINE 150 MG IV . DURING INTUBATION NO COMPLICATION NOTED. NEW IV 20G RT AND LT FOOT PLACED. BLOOD STARTED FROM SUKUMAR. OGT PLACED, IVF NS BOLUS STARTED. BLOOD PRESSURE 60/28, LEVOPHED 30MCG/MIN STARTED PER DR TSAI,TEMPERATURE 82.2. CHLOE HUGGER PLACED. PT IS UNSTABLE. WILL CONTINUE TO MONITOR
[2018-01-18 23:46] LABS: UREA NITROGEN, BLOOD 120 mg/dL (7-18)
[2018-01-18 23:47] LABS: POTASSIUM 6.6 mmol/L (3.5-5.1); TROPONIN I 0.952 ng/mL (0.00-0.056)
[2018-01-18] MEDS: PROPOFOL 100 ML IV PRN (23:55)
[2018-01-19] VITALS (108 sets, daily range): BP systolic 82–156; BP diastolic 37–87
[2018-01-19] MEDS ORDERED: SODIUM BICARBONATE SYR 50 MEQ/50 ML DISP.SYRIN IV ONE
[2018-01-19] MEDS ORDERED: DEXTROSE 50%-WATER 50 ML DISP.SYRIN IVP ONE
[2018-01-19] MEDS ORDERED: INSULIN REGULAR, HUMAN 100 UNIT/ML 3 ML VIAL IV ONE
--- NOTE | 2018-01-19 00:11 | NUR ---
RT ABG DONE. LITA BROCK NOTIFIED.
[2018-01-19] MEDS ORDERED: Sodium Bicarbonate 150 MEQ in IV D5W 1,000 ML IV PRN (00:30)
[2018-01-19] MEDS: BLOOD SUGAR DIAGNOSTIC 1 EACH STRIP IN SCH ×4 (00:40→21:25)
[2018-01-19] MEDS ORDERED: SODIUM BICARBONATE SYR 50 MEQ/50 ML DISP.SYRIN ONE (00:57)
[2018-01-19] MEDS ORDERED: SODIUM POLYSTYRENE SULFONATE 15 G/60 ML BOTTLE PO ONE (01:00)
[2018-01-19] MEDS ORDERED: VANCOMYCIN 1 GM in IV NS 0.9% 250 ML IV STA (01:30)
[2018-01-19] MEDS ORDERED: MEROPENEM 500 MG VIAL IV ONE (01:42)
[2018-01-19] MEDS ORDERED: VANCOMYCIN 1 GM VIAL ONE (01:42)
--- NOTE | 2018-01-19 01:43 | NUR ---
ELECTRONIC HEALTH RECORDS SPECIALIST. 2ND UNIT PRBC STARTED. WILL CONTINUE TO MONITOR.
--- NOTE | 2018-01-19 01:44 | NUR ---
CHILI POWDER MIXER. DR TSAI CALLED PT UP DATE GIVEN. NEW ORDER CARRIED OUT.
[2018-01-19] MEDS: ALBUTEROL FS 2.5 MG/3 ML VIAL.NEB NEB SCH ×4 (01:49→19:58)
[2018-01-19] MEDS: MEROPENEM 500 MG in IV NS 0.9% 50 ML IV SCH (02:04)
--- NOTE | 2018-01-19 03:36 | NUR ---
FIRE INVESTIGATION MANAGER. PT WAS AGITATED GAURAV SOFT WRIST RESTRAINT INITIATED.
--- NOTE | 2018-01-19 03:37 | NUR ---
ILLUMINATOR. BLOOD FINISHED, DURING TRANSFUSION NO COMPLICATION NOTED.
[2018-01-19] MEDS: PROPOFOL 100 ML IV PRN ×4 (03:51→18:26)
[2018-01-19 05:00] LABS: HEMATOCRIT 22 % (39-51); HEMOGLOBIN 7.1 g/dL (13.5-17.5); LYMPHOCYTES # (AUTO) 0.6 /CMM (0.8-4.8); LYMPHOCYTES % (AUTO) 4.2 % (20.0-44.0); MEAN CORPUSCULAR HGB CONC 33 g/dl (31.0-36.0); MEAN CORPUSCULAR VOLUME 91 fL (80-96); MONOCYTES # (AUTO) 0.7 /CMM (0.1-1.30); MONOCYTES % (AUTO) 5.4 % (2.0-12.0); NEUTROPHILS # (AUTO) 12.6 /CMM (1.8-8.9); NEUTROPHILS % (AUTO) 90.4 % (43.0-81.0); PLATELET COUNT (AUTO) 169 /CMM (150-450); RDW COEFFICIENT OF VARIATION 17.4 (11.5-15.0); RED BLOOD CELL COUNT(AUTO) 2.36 MIL/uL (4.5-6.0); WHITE BLOOD COUNT (AUTO) 13.9 K/uL (4.3-11.0)
[2018-01-19 05:22] LABS: ALANINE AMINOTRANSFERASE 338 U/L (12-78); ALKALINE PHOSPHATASE 55 U/L (46-116); ASPARTATE AMINOTRANSFERASE 388 U/L (15-37); BILIRUBIN,TOTAL 0.4 mg/dL (0.2-1.0); CALCIUM, SERUM 7.5 mg/dL (8.5-10.1); CARBON DIOXIDE 21 mmol/L (21-32); CHLORIDE 98 mmol/L (98-107); CREATININE 6.5 mg/dL (0.6-1.3); GLUCOSE 329 mg/dL (74-106); POTASSIUM 4.6 mmol/L (3.5-5.1); SODIUM SERUM 134 mmol/L (136-145); TOTAL PROTEIN, SERUM 4.5 g/dL (6.4-8.2)
[2018-01-19 05:28] LABS: UREA NITROGEN, BLOOD 127 mg/dL (7-18)
--- NOTE | 2018-01-19 05:42 | NUR ---
HAND PLATE STACKER. AM CARE, ORAL CARE, BED BATH GIVEN. LINEN CHANGED, REMAINING SAME VENT ETTING TOLERATED WELL. SAT 99%. NO ACUTE DISTRESS NOTED. STRAIN TECHNICIAN SHOWING NSR. IV RT AND LT FOOT IVF D5W IN 3 AMP BICARB 100ML/H, DIPRIVAN 45MCG/KG/MIN,LEVOPHED 10MCG/MIN. GAURAV SOFT WRIST RESTRAINT CHECKED AND RELEASED. NO INJURY OR REDNESS NOTED, HOB ELEVATED. NGT INTACT. NPO. TURN AND REPOSITION Q2H, WILL CONTINUE TO MONITOR VITALS.
[2018-01-19 05:50] LABS: IRON, SERUM 91 ug/dl (50-175); TOTAL IRON BINDING CAPACITY 87 ug/dl (250-450)
[2018-01-19 06:26] LABS: FERRITIN 28780 ng/mL (8-388)
[2018-01-19] MEDS: AZITHROMYCIN 250 MG TABLET PO SCH (06:30)
--- NOTE | 2018-01-19 06:46 | NUR ---
SYSTEMS PROGRAM MANAGER. CHLOE ALLEN D/C, TEMPERATURE 98.2
[2018-01-19 08:39] LABS: BASOPHILS % (AUTO) 0.1 % (0.0-2.0); EOSINOPHILS % (AUTO) 0.5 % (0.0-6.0); MEAN CORPUSCULAR HGB CONC 33 g/dl (31.0-36.0); MEAN CORPUSCULAR VOLUME 90 fL (80-96); MONOCYTES # (AUTO) 0.7 /CMM (0.1-1.30); NEUTROPHILS # (AUTO) 9.4 /CMM (1.8-8.9); NEUTROPHILS % (AUTO) 84.4 % (43.0-81.0); PLATELET COUNT (AUTO) 170 /CMM (150-450); RDW COEFFICIENT OF VARIATION 17.8 (11.5-15.0); RED BLOOD CELL COUNT(AUTO) 2.16 MIL/uL (4.5-6.0); WHITE BLOOD COUNT (AUTO) 11.1 K/uL (4.3-11.0)
[2018-01-19 08:42] LABS: HEMATOCRIT 19 % (39-51); HEMOGLOBIN 6.4 g/dL (13.5-17.5)
--- NOTE | 2018-01-19 08:48 | NUR ---
WOUND CARE CONSULT: PT PRESENTS INTUBATED AND IMMOBILE WITH BLANCHABLE REDNESS TO BUTTOCKS. FIRST STEP LOW AIRLOSS MATTRESS ON ORDER. ALL SKIN PROTECTION AND PRESSURE ULCER PREVENTION MEASURES IN PLACE AND DISCUSSED WITH NURSING STAFF. WILL SEE PRN. ELAM IN AGREEMENT WITH PLAN OF CARE. Addendum: 01/19/18 at 0852 by STEVE ROJAS WNDNU Amended: Links added.
--- NOTE | 2018-01-19 08:55 | NUR ---
DR STOLL NOTIFIED REGARDING H&H TODAY, REGARDING BLOODY BOWEL MOVEMENTS AND NGTUBE OUTPUT PER HIS ORDERS, CONTACT TK VILLARREAL FOR A GI CONSULT
[2018-01-19] MEDS: ASPIRIN 81 MG TAB.CHEW PO SCH (09:00)
[2018-01-19] MEDS: NOREPINEPHRINE 16 MG in IV D5W 500 ML IV PRN (09:06)
--- NOTE | 2018-01-19 09:20 | NUR ---
DR CHAUDHARI NOTIFIED THAT ANTIPLATELETS AND ANTICOAGULANTS ARE BEING HELD AT THE MOMENT
[2018-01-19 09:22] LABS: LYMPHOCYTES % (MANUAL) 10 % (16-48); MONOCYTES % (MANUAL) 4 % (0-11.0); NEUTROPHILS % (MANUAL) 86 (42-76)
[2018-01-19] MEDS ORDERED: PANTOPRAZOLE 40 MG VIAL IV SCH (09:30)
--- NOTE | 2018-01-19 09:31 | NUR ---
DR CHAUDHARI UPDATED REGARDING PATIENT'S STATUS AND NOTIFIED OF RECENT H&H. PER HIS ORDERS, STAT ABG, RT TABBY NOTIFIED PROTONIX IV 40 MG DAILY, 1 DOSE NOW 2 UNITS PRBC TODAY
--- NOTE | 2018-01-19 09:59 | NUR ---
DR CHAUDHARI NOTIFIED OF ABG RESULTS, PER DR CHAUDHARI, DISCONTINUE BICARBONATE DRIP AND ADJUST VENT CHANGES TO FIO2 OF 50% AND TV OF 450%
--- NOTE | 2018-01-19 10:00 | NUR ---
SEDATION VACATION TITRATION, SEE IV SPREADSHEET. PROPOFOL TITRATED DOWN PER PROTOCOL. TACHYPNEA NOTED AT 20 MCG/MIN/KG WITH LABORED BREATHING. UNABLE TO OBTAIN BASELINE NEUROLOGICAL STATUS WHEN DOING SEDATION VACATION. PATIENT ORIENTED TO ENVIRONMENT, SITUATION, AND PLACE. PATIENT GRIMACING WHEN INSTRUCTED TO OPEN EYES. ABLE TO MOVE FEET WHEN INSTRUCTED TO MOVE EXTREMITIES. DIPRIVAN TITRATED UP PER PROTOCOL UPON TACHYPNEA NOTED. DR CHAUDHARI NOTIFIED REGARDING SEDATION VACATION. GAG REFLEX AND COUGH REFLEX NOTED PATIENT PERRLA 3MM
--- NOTE | 2018-01-19 10:08 | NUR ---
DR CHAUDHARI NOTIFIED OF ABG RESULTS, PER DR CHAUDHARI, DISCONTINUE BICARBONATE DRIP AND ADJUST VENT CHANGES TO FIO2 OF 50% AND TV OF 450%. VERBAL READBACK DONE
[2018-01-19] MEDS: hydrALAZINE HCL 25 MG TABLET PO SCH ×2 (10:35→16:14)
[2018-01-19] MEDS: LEVOTHYROXINE SODIUM 50 MCG TABLET PO SCH (10:35)
[2018-01-19] MEDS: LACTOBACILLUS RHAMNOSUS GG 1 EACH CAP.SPRINK PO SCH ×2 (10:37→17:38)
[2018-01-19] MEDS: FUROSEMIDE 40 MG TABLET PO SCH (10:37)
[2018-01-19] MEDS: BENAZEPRIL HCL 20 MG TABLET PO SCH (10:37)
[2018-01-19] MEDS: APIXABAN 5 MG TABLET PO SCH ×2 (10:37→21:25)
[2018-01-19] MEDS: AMIODARONE HCL 200 MG TABLET PO SCH ×2 (10:37→17:39)
[2018-01-19] MEDS: NIFEdipine XL (30MG) 30 MG TAB PO SCH (10:38)
[2018-01-19] MEDS: VIT B CMPLX 3/FA/VIT C/BIOTIN 1 TAB TABLET PO SCH (10:38)
[2018-01-19] MEDS: NEPRO VAN 237 ML CAN PO SCH (10:38)
[2018-01-19] MEDS: SEVELAMER CARBONATE 800 MG TABLET PO SCH ×3 (10:38→16:15)
[2018-01-19] MEDS: METOPROLOL SUCCINATE 50 MG TAB.SR.24H PO SCH (10:38)
--- NOTE | 2018-01-19 10:40 | NUR ---
NURSING GUM MACHINE OPERATOR AND DR STOLL NOTIFIED REGARDING PICCLINE NEED. SISTER CONSENTED TO INSERTION OF PICCLINE
[2018-01-19] MEDS ORDERED: ACETAMINOPHEN 650 MG/SUPP.RECT RC PRN (11:00)
--- NOTE | 2018-01-19 11:00 | NUR ---
NOTIFIED [facility] REGARDING [facility] ORDER
--- NOTE | 2018-01-19 11:03 | NUR ---
PER DR CHAUDHARI TYLENOL SUPPOSITORY RECTAL 650 MG PRN Q 6HOURS, PART OF BLOOD TRANSFUSION ORDER
--- NOTE | 2018-01-19 11:17 | NUR ---
100.6F RECTAL TEMP. COOLING MEASURES INITIATED IMMEDIATELY
--- NOTE | 2018-01-19 11:42 | NUR ---
PER TK VILLARREAL NP, OBTAIN CONSENT FOR EGD. TK VILLARREAL NP, NOTIFIED THAT PATIENT CURRENTLY NOT CONNECTED TO SUCTION PER DR EULALIO Valdez'S ORDERS. WINDOW DECORATOR NOTIFIED THAT PATIENT CURRENTLY NPO
--- NOTE | 2018-01-19 11:51 | NUR ---
CONTACTED PATIENT'S SISTER, JANIE, AND LEFT A VOICEMAIL. AWAITING CALL BACK TO OBTAIN A CONSENT FOR THE PROCEDURE
--- NOTE | 2018-01-19 11:52 | NUR ---
CURRENT CORE TEMP AT 100.4, COOLING MEASURES IMPLEMENTED, TYELNOL ADMINISTERED PER ORDERS. UNABLE TO INFUSE BLOOD AT THE MOMENT. MONITORING FEVER
--- NOTE | 2018-01-19 12:00 | NUR ---
PATIENT REMAINING SINUS RHYTHM ON TELE MONITOR WITH BBB AND INVERTED T WAVE. NO FIRST DEGREE HEART BLOCK NOTED UPON CALCULATION ON WI INTERVAL. CONFIRMED WITH ROJELIO, TELE MONITOR .
--- NOTE | 2018-01-19 12:15 | NUR ---
CONSENT OBTAINED FROM PATIENT'S SISTER FOR EGD
--- NOTE | 2018-01-19 12:40 | NUR ---
XRAY STAT PER ORDERS FOR POST PICCLINE INSERTION
--- NOTE | 2018-01-19 14:09 | NUR ---
1 PRBC BEING TRANSFUSED WITH HD AT THE MOMENT. TEMPERATURE IMPROVED TO 98.9 CORE. MARIBELL HD TECH AT BEDSIDE
--- NOTE | 2018-01-19 16:06 | NUR ---
PER DR STOLL, CONTINUE PHARMACY DOSING VANCOMYCIN VERBAL READBACK DONE
--- NOTE | 2018-01-19 16:15 | NUR ---
GINNY HELD DUE TO PATIENT BEING NPO WITH NO TUBE FEEDING
--- NOTE | 2018-01-19 16:20 | NUR ---
DR SIMMONS NOTIFIED OF RECENT 12 LEAD EKG, PER HIS ORDERS, GIVE TODAY'S DOSE OF AMIODARONE VERBAL READBACK DONE
[2018-01-19] MEDS ORDERED: FEE PK DOSING 1 MIN EA MC ONE (16:24)
--- NOTE | 2018-01-19 16:31 | NUR ---
PER TK VILLARREAL DIGITAL CAMPAIGN MANAGER, REPEAT CBC, FIBRONIGIN , LFTS, PT/INR, D-DIMER VERBAL READBACK DONE
--- NOTE | 2018-01-19 16:45 | NUR ---
VERIFIED WITH TK VILLARREAL PATIENT REGISTRATION SPECIALIST, THAT PROTONIX 40 MG IV BID VERBAL READBACK DONE
[2018-01-19] MEDS ORDERED: VANCOMYCIN 1 GM in IV D5W 250 ML IV ONE (17:00)
[2018-01-19 17:22] LABS: EOSINOPHILS % (AUTO) 0.9 % (0.0-6.0); HEMATOCRIT 30 % (39-51); HEMOGLOBIN 9.7 g/dL (13.5-17.5); LYMPHOCYTES # (AUTO) 1.3 /CMM (0.8-4.8); LYMPHOCYTES % (AUTO) 8.2 % (20.0-44.0); MEAN CORPUSCULAR HGB CONC 33 g/dl (31.0-36.0); MEAN CORPUSCULAR VOLUME 92 fL (80-96); MONOCYTES # (AUTO) 0.7 /CMM (0.1-1.30); MONOCYTES % (AUTO) 4.6 % (2.0-12.0); NEUTROPHILS # (AUTO) 13.7 /CMM (1.8-8.9); NEUTROPHILS % (AUTO) 86.3 % (43.0-81.0); PLATELET COUNT (AUTO) 192 /CMM (150-450); RDW COEFFICIENT OF VARIATION 16.4 (11.5-15.0); RED BLOOD CELL COUNT(AUTO) 3.22 MIL/uL (4.5-6.0); WHITE BLOOD COUNT (AUTO) 15.9 K/uL (4.3-11.0)
--- NOTE | 2018-01-19 17:31 | NUR ---
PER HAM STOLL DNP, CT OF HEAD TOMORROW AM
--- NOTE | 2018-01-19 17:36 | NUR ---
PER DR STOLL, HEAD CT WO CONTRAST, SCHEDULED FOR TOMORROW AM PER DR STOLL'S ORDERS . VERBAL READBACK DONE
[2018-01-19] MEDS: SUCRALFATE 1 G/10 ML UDC GT SCH ×2 (17:37→21:25)
[2018-01-19] MEDS: PANTOPRAZOLE 40 MG VIAL IV SCH (17:38)
[2018-01-19 17:40] LABS: ALBUMIN 2.1 g/dL (3.4-5.0); BILIRUBIN,DIRECT 0.1 mg/dL (0.0-0.2); BILIRUBIN,TOTAL 0.4 mg/dL (0.2-1.0)
--- NOTE | 2018-01-19 18:20 | NUR ---
PER TK VILLARREAL , PLACE PATIENT NPO POST MIDNIGHT FOR EGD TOMORROW
--- NOTE | 2018-01-19 18:22 | NUR ---
NOTIFIED [facility] THROUGHOUT THE DAY REGARDING THE I MATTRESS ORDER. SPOKE TO MARRY FROM [facility] AGAIN.
[2018-01-19 18:34] LABS: INR 1.29 (0.87-1.13)
--- NOTE | 2018-01-19 19:10 | NUR ---
RN CLOSING NOTES: PATIENT RESTING IN BED. NONLABORED BREATHING NOTED ON CURRENT VENT SETTINGS. ETT 7.5 AT 22 AT THE LIP. PICCLINE ON LEFT UPPER ARM PATENT AND INTACT. PATIENT PERRLA UPON ASSESSMENT. CURRENTLY ON DIPRIVAN 45 MCG/KG/MIN AND LEVOPHED 8 MCG/MIN. IV ACCESS ON RIGHT HAND GAUGE 18 PATENT AND INTACT, ON LEFT HAND 20 PATENT AND INTACT, BILATERAL LOWER EXTREMITIES GAUGE 20 PATENT AND INTACT. NGTUBE PATENT AND INTACT. RESTRAINTS BILATERAL SOFT RESTRAINTS. PATIENT'S SISTER EDUCATED REGARDING RESTRAINTS DURING SHIFT. SHE VERBALIZED HER UNDERSTANDING. PATIENT HAD 1 BM, DARK BLOODY, WATERY. UNABLE TO COLLECT FOR CDIFF AT THE MOMENT. BED IN LOWEST LOCKED POSITION. CALL LIGHT WITHIN REACH. ASPIRATION AND FALL PRECUATIONS IMPLEMENTED THROUGHOUT SHIFT PATIENT SR HR WITH 80S, BBB, T-INVERSION ON TELE MONITOR
--- NOTE | 2018-01-19 19:11 | NUR ---
ENDORSED TO LITA BROCK FOR DIANE
--- NOTE | 2018-01-19 19:51 | NUR ---
WAITER/WAITRESS TAKE OUT. INITIAL ASSESSMENT. RECEIVED THE PT REST ON THE BED. ORALLY INTUBATED. SEDATED WITH DIPRIVAN. ETT 7.5,LIP 22CM,AC 14,TV 450,FIO2 50%. SAT 98%. DISABILITY REPRESENTATIVE SHOWING NSR. IV LT UPPER ARM PICC LINE TKO RUNNING. LEVOPHED 10MCG/MIN,DIPRIVAN 45MCG/KG/MIN, RT NARE NGT INTACT, HOB ELEVATED. NPO. AFEBRILE. WILL CONTINUE TO MONITOR VITALS.
[2018-01-19 20:20] LABS: D-DIMER 24.2 mg/L(FEU (0.17-0.50)
--- NOTE | 2018-01-19 20:25 | NUR ---
RECEIVED PT INTUBATED 7.5 ETT SECURED AT 22CM AT THE LIP. NO RESP DISTRESS. PT TOLERATING VENT SETTINGS. SX'D FOR MOD AMT OF THICK YELLOW SECRETIONS. VENT ALARMS SET AND AUDIBLE. AMBU BAG AT BEDSIDE. WILL CONTINUE TO MONITOR. Addendum: 01/19/18 at 2026 by JOCELIN THOMPSON RT Amended: Links added.
[2018-01-19] MEDS: ATORVASTATIN 40 MG TABLET PO SCH (21:25)
[2018-01-19] MEDS: INSULIN REGULAR, HUMAN 100 UNIT/ML 3 ML VIAL SQ PRN (21:28)
--- NOTE | 2018-01-19 23:00 | NUR ---
SUPERINTENDENT RECREATION NOTE RECEIVED PATIENT FROM LITA, WILL CONTINUE TO MONITOR.
[2018-01-20] VITALS (126 sets, daily range): BP systolic 76–137; BP diastolic 45–79
[2018-01-20] MEDS: PROPOFOL 100 ML IV PRN ×4 (00:52→20:26)
[2018-01-20] MEDS: ALBUTEROL FS 2.5 MG/3 ML VIAL.NEB NEB SCH ×4 (01:09→20:05)
[2018-01-20] MEDS: MEROPENEM 500 MG in IV NS 0.9% 50 ML IV SCH (01:31)
[2018-01-20] MEDS: AZITHROMYCIN 250 MG TABLET PO SCH (05:12)
[2018-01-20 05:16] LABS: BASOPHILS % (AUTO) 0.3 % (0.0-2.0); EOSINOPHILS % (AUTO) 1.3 % (0.0-6.0); HEMATOCRIT 26 % (39-51); HEMOGLOBIN 8.6 g/dL (13.5-17.5); LYMPHOCYTES # (AUTO) 0.9 /CMM (0.8-4.8); LYMPHOCYTES % (AUTO) 6.1 % (20.0-44.0); MEAN CORPUSCULAR HGB CONC 33 g/dl (31.0-36.0); MEAN CORPUSCULAR VOLUME 92 fL (80-96); MONOCYTES # (AUTO) 0.7 /CMM (0.1-1.30); MONOCYTES % (AUTO) 4.6 % (2.0-12.0); NEUTROPHILS # (AUTO) 12.5 /CMM (1.8-8.9); NEUTROPHILS % (AUTO) 87.7 % (43.0-81.0); PLATELET COUNT (AUTO) 189 /CMM (150-450); RDW COEFFICIENT OF VARIATION 16.8 (11.5-15.0); RED BLOOD CELL COUNT(AUTO) 2.83 MIL/uL (4.5-6.0); WHITE BLOOD COUNT (AUTO) 14.3 K/uL (4.3-11.0)
[2018-01-20 05:28] LABS: CALCIUM, SERUM 7.5 mg/dL (8.5-10.1); CARBON DIOXIDE 26 mmol/L (21-32); CHLORIDE 97 mmol/L (98-107); CREATININE 4.4 mg/dL (0.6-1.3); GLUCOSE 218 mg/dL (74-106); POTASSIUM 4.2 mmol/L (3.5-5.1); SODIUM SERUM 133 mmol/L (136-145)
[2018-01-20 05:35] LABS: ALBUMIN 1.8 g/dL (3.4-5.0); BILIRUBIN,DIRECT 0.1 mg/dL (0.0-0.2); BILIRUBIN,TOTAL 0.3 mg/dL (0.2-1.0); TOTAL PROTEIN, SERUM 4.7 g/dL (6.4-8.2)
[2018-01-20 05:51] LABS: TROPONIN I 9.385 ng/mL (0.00-0.056)
[2018-01-20 05:54] LABS: UREA NITROGEN, BLOOD 80 mg/dL (7-18)
[2018-01-20 06:03] LABS: INR 1.23 (0.87-1.13)
--- NOTE | 2018-01-20 06:04 | NUR ---
MASTER LAY OUT SPECIALIST NOTE RELAYED TO YONATAN PALOMINO REGARDING CRITICAL LAB VALUE TROPONIN 9.385 AND PREVIOUS TROPONIN LEVEL WAS 1.533. WITH NEW ORDER RECEIVED REPEAT TROPONIN LEVEL. LAB INFORMED.
[2018-01-20 06:32] LABS: D-DIMER 15.2 mg/L(FEU (0.17-0.50)
--- NOTE | 2018-01-20 06:50 | NUR ---
NAPHTHOL SOAPING MACHINE OPERATOR NOTE INFORMED DR. SIMMONS REGARDING REPEAT TROPONIN LEVEL 8.901, NNO. WILL CONTINUE TO MONITOR.
[2018-01-20 07:08] LABS: IMMUNOGLOBULIN A, SERUM 134 mg/dL (61-437); IMMUNOGLOBULIN G, SERUM 496 mg/dL (700-1600); IMMUNOGLOBULIN M, SERUM 11 mg/dL (15-143)
[2018-01-20] MEDS: LEVOTHYROXINE SODIUM 50 MCG TABLET PO SCH (07:30)
[2018-01-20] MEDS: SUCRALFATE 1 G/10 ML UDC GT SCH ×3 (07:30→17:30)
--- NOTE | 2018-01-20 07:46 | NUR ---
COUNTRY MANAGER CLOSING NOTE NO SIGNIFICANT CHANGES OVERNIGHT. NO RESPIRATORY DISTRESS NOTED, TOLERATING VENT SETTINGS, SUCTIONED NEEDED. RIGHT NARE NGT PATENT, INTACT, IN PLACE, CLAMPED. NPO, FOR EGD PROCEDURE TODAY. WITH SHARATH PICC LINE PATENT AND INTACT, WITH LEVO AT 2MCG/MIN AND DIPRIVAN AT 25MCG/KG/MIN, AND TKO RUNNING. KEPT CLEAN AND DRY. TURNED AND REPOSITIONED Q2 AND PRN. HOB ELEVATED. SIDE RAILS UP AND LOCKED. BED KEPT AT LOWEST POSITION. BILATERAL SOFT WRIST RESTRAINTS IN PLACE, CIRCULATION CHECKED. CONTINUITY OF CARE ENDORSED TO AM NURSE.
[2018-01-20] MEDS: hydrALAZINE HCL 25 MG TABLET PO SCH ×2 (08:05→16:10)
[2018-01-20] MEDS: APIXABAN 5 MG TABLET PO SCH ×2 (08:06→22:02)
[2018-01-20] MEDS: AMIODARONE HCL 200 MG TABLET PO SCH (08:06)
[2018-01-20] MEDS: LACTOBACILLUS RHAMNOSUS GG 1 EACH CAP.SPRINK PO SCH ×2 (08:06→16:11)
[2018-01-20] MEDS: BENAZEPRIL HCL 20 MG TABLET PO SCH (08:07)
[2018-01-20] MEDS: NEPRO VAN 237 ML CAN PO SCH (08:07)
[2018-01-20] MEDS: SEVELAMER CARBONATE 800 MG TABLET PO SCH ×3 (08:07→16:11)
[2018-01-20] MEDS: NIFEdipine XL (30MG) 30 MG TAB PO SCH (08:07)
[2018-01-20] MEDS: VIT B CMPLX 3/FA/VIT C/BIOTIN 1 TAB TABLET PO SCH (08:07)
[2018-01-20] MEDS: METOPROLOL SUCCINATE 50 MG TAB.SR.24H PO SCH (08:08)
[2018-01-20] MEDS: BLOOD SUGAR DIAGNOSTIC 1 EACH STRIP IN SCH ×4 (08:33→22:14)
[2018-01-20] MEDS: PANTOPRAZOLE 40 MG VIAL IV SCH ×2 (08:36→16:14)
--- NOTE | 2018-01-20 08:40 | NUR ---
PER DR CHAUDHARI, VENT CHANGES TO FIO2 OF 40%. NO ORDER FOR ABG YET VERBAL READBACK DONE DR CHAUDHARI UPDATED ON AM LABS
--- NOTE | 2018-01-20 09:00 | NUR ---
SEDATION VACATION TITRATION, SEE IV SPREADSHEET. PROPOFOL TITRATED DOWN PER PROTOCOL. UPON 0 MCG/MIN, PATIENT ABLE TO OPEN EYES SLIGHTLY, MOVING EXTREMITIES UPPER AND LOWER . HOWEVER, NOT FOLLOWING COMMANDS. NO AGITATION NOTED. COUGH AND GAG REFLEX NOTED. PATIENT ORIENTED TO ENVIRONMENT, SITUATION, AND PLACE. DIPRIVAN TITRATED UP PER PROTOCOL UPON TACHYPNEA NOTED. DR CHAUDHARI NOTIFIED REGARDING SEDATION VACATION.
[2018-01-20] MEDS ORDERED: PANTOPRAZOLE 40 MG VIAL IV SCH (09:30)
--- NOTE | 2018-01-20 10:00 | NUR ---
[facility] SUPPLY NOTIFIED REGARDING [facility] MATTRESS ORDER
--- NOTE | 2018-01-20 10:13 | NUR ---
SPOKE TO NURSE(MARTIN) SHE STATED THE PT IS TO UNSTABLE TO COME DOWN, SHE WILL CALL BACK WHEN READY([id number])
--- NOTE | 2018-01-20 10:42 | NUR ---
[id number] ERROR IN MONITOR, UNABLE TO RECORD BP
--- NOTE | 2018-01-20 10:45 | NUR ---
DR CHAUDHARI NOTIFIED OF TODAY'S ABG LEVELS. PER HIS ORDERS, NO CHANGE VERBAL READBACK DONE
--- NOTE | 2018-01-20 12:00 | NUR ---
UNABLE TO TAKE PATIENT TO CT OF HEAD YET DUE TO HEMODYNAMIC INSTABILITY. LEVOPHED TITRATED PER PROTOCOL TO MAINTAIN BP WNL. PATIENT'S SISTER, JANIE, IN AGREEMENT OF TREATMENT PLAN. SISTER REFUSING TO HAVE CT SCAN DONE UNTIL BP STABLE
[2018-01-20] MEDS: NOREPINEPHRINE 16 MG in IV D5W 500 ML IV PRN (14:11)
[2018-01-20] MEDS ORDERED: VANCOMYCIN 500 MG in IV D5W 100 ML IV PRN (16:00)
--- NOTE | 2018-01-20 16:05 | NUR ---
PATIENT TRANSPORTED TO CT ROOM FOR CT OF HEAD. NO CHANGES DURING TRANSPORT. VS WNL AND NO NEW EKG CHANGES NOTED
--- NOTE | 2018-01-20 17:14 | NUR ---
DR SIMMONS NOTIFIED THAT AFLUTTER NOTED ON MONITOR AT 16:35, NOTIFIED OF 12 LEAD EKG CONFIRMING IT. DR SIMMONS NOTIFIED THAT PATIENT MISSED HIS AMIODARONE DOSE FOR TODAY DUE TO BEING NPO, AND THAT HE IS SCHEDULED TO UNDERGO EGD IN THE NEXT [address] SIMMONS, MONITOR RATE OF HEART. VERBAL READBACK DONE
--- NOTE | 2018-01-20 17:37 | NUR ---
DR RYDER, ANESTHESIOLOGIST, AND DR SOLOMON NOTIFIED OF HEART RHYTHM CHANGE. SPOKE WITH SISTER, JANIE, AND NIECE, RIKKI DISCUSSED BENEFITS AND RISKS OF PROCEDURE. BOTH CONSENTED TO THE EGD AGAIN
--- NOTE | 2018-01-20 17:40 | NUR ---
DR STOLL NOTIFIED OF CT SCAN RESULTS. NO NEW ORDERS. VERBAL READBACK DONE
--- NOTE | 2018-01-20 18:05 | NUR ---
[facility] ORDER RE-ENTERED. [facility] NOTIFIED AGAIN REGARDING MATTRESS
--- NOTE | 2018-01-20 18:50 | NUR ---
PER DR SOLOMON, CARAFATE 1 GM Q 6 HOURS RESUME POST OP ORDERS- NPO EXCEPT MEDS
--- NOTE | 2018-01-20 19:15 | NUR ---
ENDORSED TO CRISTIAN FOR DIANE
--- NOTE | 2018-01-20 19:30 | NUR ---
CONFERENCE SPECIALIST INITIAL NOTE RECEIVED PATIENT SEDATED, VENT DEPENDENT. NO S/S OF PAIN OR DISCOMFORT. NO RESPIRATORY DISTRESS NOTED. ETT 7.5/22CM AT THE LIP, VENT SETTING AC 14, TV 450, FIO2 40%, PEEP 0. SKIN WARM AND DRY TO TOUCH. ON TELE MONITOR AFIB CONTROLLED. WITH RIGHT NARE NGT PATENT AND INTACT, IN PLACE, CLAMPED. WITH SHARATH PICC LINE PATENT, INTACT, LEVO AT 1MCG/MIN, DIPRIVAN AT 40MCG/KG/MIN RUNNING. HOB ELEVATED. TURNED AND REPOSITIONED. SIDE RAILS UP AND LOCKED. BED KEPT AT LOWEST POSITION. BILATERAL WRIST RESTRAINTS IN PLACE, CIRCULATION CHECKED. WILL CONTINUE TO MONITOR.
--- NOTE | 2018-01-20 20:52 | NUR ---
RECEIVED PT INTUBATED. NO RESP DISTRESS. PT TOLERATING VENT SETTINGS. SX'D FOR MOD AMT OF THICK YELLOW SECRETIONS. VENT ALARMS SET AND AUDIBLE. AMBU BAG AT BEDSIDE. WILL CONTINUE TO MONITOR. Addendum: 01/20/18 at 2051 by VIOLETTE ALCANTARA RT Amended: Links added.
[2018-01-20] MEDS: ATORVASTATIN 40 MG TABLET PO SCH (22:03)
[2018-01-20] MEDS: INSULIN REGULAR, HUMAN 100 UNIT/ML 3 ML VIAL SQ PRN (22:15)
[2018-01-21] VITALS (67 sets, daily range): BP systolic 47–119; BP diastolic 35–70
[2018-01-21] MEDS: SUCRALFATE 1 G TABLET GT SCH ×2 (00:21→05:40)
[2018-01-21] MEDS: ALBUTEROL FS 2.5 MG/3 ML VIAL.NEB NEB SCH ×2 (01:13→07:39)
[2018-01-21] MEDS: MEROPENEM 500 MG in IV NS 0.9% 50 ML IV SCH (02:52)
[2018-01-21 05:02] LABS: BASOPHILS % (AUTO) 0.3 % (0.0-2.0); EOSINOPHILS % (AUTO) 1.9 % (0.0-6.0); HEMATOCRIT 22 % (39-51); HEMOGLOBIN 7.2 g/dL (13.5-17.5); LYMPHOCYTES # (AUTO) 1.4 /CMM (0.8-4.8); LYMPHOCYTES % (AUTO) 9.5 % (20.0-44.0); MEAN CORPUSCULAR HGB CONC 33 g/dl (31.0-36.0); MEAN CORPUSCULAR VOLUME 92 fL (80-96); MONOCYTES # (AUTO) 0.8 /CMM (0.1-1.30); MONOCYTES % (AUTO) 5.2 % (2.0-12.0); NEUTROPHILS # (AUTO) 12.5 /CMM (1.8-8.9); NEUTROPHILS % (AUTO) 83.1 % (43.0-81.0); PLATELET COUNT (AUTO) 188 /CMM (150-450); RED BLOOD CELL COUNT(AUTO) 2.37 MIL/uL (4.5-6.0)
[2018-01-21 05:12] LABS: *SPE A/G RATIO 1.5 (0.7-1.7); *SPE ALBUMIN 2.4 g/dL (2.9-4.4); *SPE ALPHA-1-GLOBULIN 0.3 g/dL (0.0-0.4); *SPE ALPHA-2-GLOBULIN 0.5 g/dL (0.4-1.0); *SPE BETA GLOBULIN 0.4 g/dL (0.7-1.3); *SPE GLOBULIN, TOTAL 1.6 g/dL (2.2-3.9); *SPE M-SPIKE Not Observed g/dL (Not Observed); *SPEGAMMA GLOBULIN 0.5 g/dL (0.4-1.8)
[2018-01-21] MEDS: PROPOFOL 100 ML IV PRN (05:12)
[2018-01-21 05:29] LABS: CALCIUM, SERUM 6.9 mg/dL (8.5-10.1); CARBON DIOXIDE 24 mmol/L (21-32); CHLORIDE 100 mmol/L (98-107); CREATININE 5.8 mg/dL (0.6-1.3); GLUCOSE 170 mg/dL (74-106); POTASSIUM 4.8 mmol/L (3.5-5.1); SODIUM SERUM 135 mmol/L (136-145)
[2018-01-21 05:30] LABS: UREA NITROGEN, BLOOD 92 mg/dL (7-18)
--- NOTE | 2018-01-21 05:30 | NUR ---
MOSAIC WORKER NOTE PATIENT HAD LARGE BLACK LIQUID STOOL, PERICARE PROVIDED. PATIENT KEPT CLEAN AND DRY. WILL CONTINUE TO MONITOR.
[2018-01-21 05:40] LABS: TROPONIN I 4.381 ng/mL (0.00-0.056)
--- NOTE | 2018-01-21 07:10 | NUR ---
CADD TECHNICIAN CLOSING NOTE NO RESPIRATORY DISTRESS NOTED. DIPRIVAN AND LEVO TITRATED PER PROTOCOL. KEPT CLEAN AND DRY. TURNED AND REPOSITIONED Q2 AND PRN. SHARATH PICC LINE PATENT AND INTACT WITH TKO, DIPRIVAN AT 5MCG/KG/MIN, LEVO AT 40 MCG/MIN. SIDE RAILS UP AND LOCKED. BED KEPT AT LOWEST POSITION. BILATERAL SOFT WRIST RESTRAINTS IN PLACE. CONTINUITY OF CARE ENDORSED TO AM NURSE.
[2018-01-21] MEDS: LEVOTHYROXINE SODIUM 50 MCG TABLET PO SCH (07:30)
[2018-01-21] MEDS ORDERED: PHENYLEPHRINE 80 MG in IV D5W 250 ML IV PRN (07:30)
--- NOTE | 2018-01-21 07:35 | NUR ---
SENIOR NURSE MANAGER RECEIVED PATIENT FROM THE PREVIOUS SHIFT. PATIENT IS INTUBATED. VENT SETTINGS REVIEWED AND VERIFIED. NO ACUTE DISTRESS. PRESSORS FOR BP SUPPORT. CLOSELY MONITORED. UNABLE TO TURN AND REPOSITION AT THIS TIME DUE TO HEMODYNAMIC INSTABILITY. WILL CONTINUE TO MONITOR AND PROVIDE CARE.
[2018-01-21] MEDS ORDERED: IV NS 0.9% 1,000 ML IV SCH (08:00)
[2018-01-21] MEDS: BLOOD SUGAR DIAGNOSTIC 1 EACH STRIP IN SCH (08:29)
[2018-01-21] MEDS ORDERED: VASOPRESSIN INJ 50 UNIT in IV D5W 497.5 ML IV PRN (08:30)
[2018-01-21] MEDS ORDERED: HYDROCORTISONE SOD SUCCINATE 100 MG/2 ML VIAL IV SCH (09:00)
[2018-01-21] MEDS: NEPRO VAN 237 ML CAN PO SCH (09:00)
[2018-01-21] MEDS: VIT B CMPLX 3/FA/VIT C/BIOTIN 1 TAB TABLET PO SCH (09:00)
[2018-01-21] MEDS: APIXABAN 5 MG TABLET PO SCH (09:00)
[2018-01-21] MEDS: LACTOBACILLUS RHAMNOSUS GG 1 EACH CAP.SPRINK PO SCH (09:00)
[2018-01-21] MEDS: AMIODARONE HCL 200 MG TABLET PO SCH (09:00)
[2018-01-21] MEDS: SEVELAMER CARBONATE 800 MG TABLET PO SCH (09:00)
[2018-01-21] MEDS: PANTOPRAZOLE 40 MG VIAL IV SCH (09:52)
[2018-01-21] MEDS: NOREPINEPHRINE 16 MG in IV D5W 500 ML IV PRN (10:57)
--- NOTE | 2018-01-21 11:16 | NUR ---
SIZE CHANGER FAMILY WISHES DNR CODE STATUS. RN PROVIDED EDUCATION. HAM STOLL ORAL PATHOLOGIST SPOKE TO FAMILY AT BEDSIDE. EVENT WITNESSED BY CHARGE NURSE. DNR STATUS ENTERED.
--- NOTE | 2018-01-21 11:34 | NUR ---
RN NOTE PT DNR STATUS. ON VENT, TRIPLE PRESSORS INFUSING. FOUND PT APNEIC, ASYSTOLIC, AREFLEXIVE. PRONOUNCED . SISTER AT BEDSIDE.
--- NOTE | 2018-01-21 11:34 | NUR ---
SACK DEPARTMENT SUPERVISOR PATIENT IS ASYSTOLIC WITH NO PULSE. SEEN BY PRIMARY MD. PATIENT WAS PRONOUNCED BY PRIMARY DIET AIDE AT 1134H. FAMILY AT BEDSIDE AND AWARE. NOT A FUNDRAISING CONSULTANT'S CASE PER DIET AIDE.
--- NOTE | 2018-01-21 11:59 | NUR ---
CIDER MAKER RN CALLED [facility] AND INFORMED ABOUT . CALLED [facility] AND INFORMED THAT PRIMARY ECONOMIC ANALYST CONSIDERS THIS TO BE A CASE OF SEPSIS WITH PNEUMONIA WITH WBC COUNT OF [phone]. PATIENT IS NOT A CANDIDATE FOR [employer] DONATION.
[2018-01-21] MEDS ORDERED: FLUDROCORTISONE 0.1 MG TABLET JT SCH (12:00)
[2018-01-21] MEDS ORDERED: DC PROPOFOL WHEN EXTUBATED XX PRN (12:30)
--- NOTE | 2018-01-21 12:54 | NUR ---
WIRE TAPER PATIENT'S FAMILY AT BEDSIDE. FAMILY REQUESTED TO HOLD ON POST-MORTEM CARE TILL ALL OF THE FAMILY SEES THE BODY AT BEDSIDE.
[2018-01-21 14:12] LABS: ABG BASE EXCESS -0.2 mmol/L; ABG PCO2 27.1 mmHg (35.0-45.0); ABG PH 7.533 (7.350-7.450); ABG PO2 230.3 mmHg (75.0-100.0); AaDO2 455.6 mmHg; COHb 0.3 % (0.5-1.5); MetHb 1.1 % (0.0-1.5); O2Hb 96.6 % (94.0-97.0); SITE, ABG Left Brachial; VT, ABG 500 mL
[2018-01-21 14:12] LABS: ABG BASE EXCESS -14.2 mmol/L; ABG OXYGEN SATURATION 94.5 % (92.0-98.5); ABG PCO2 25.1 mmHg (35.0-45.0); ABG PH 7.273 (7.350-7.450); ABG PO2 97.4 mmHg (75.0-100.0); AaDO2 158.9 mmHg; COHb 0.4 % (0.5-1.5); MetHb 0.7 % (0.0-1.5); O2Hb 93.5 % (94.0-97.0); PEEP,BG 0 cm H2O; SITE, ABG Right Brachial; VT, ABG 450 mL
[2018-01-21 14:12] LABS: ABG OXYGEN SATURATION 94.4 % (92.0-98.5); ABG PCO2 34.6 mmHg (35.0-45.0); ABG PH 7.439 (7.350-7.450); ABG PO2 80.9 mmHg (75.0-100.0); AaDO2 164.5 mmHg; COHb 0.3 % (0.5-1.5); MetHb 0.7 % (0.0-1.5); O2Hb 93.5 % (94.0-97.0); SITE, ABG Right Brachial
== END 2018-01-21 11:34 | disposition expired | DRG 720 ==
LOC: ER 00:29 → TELE-TD 04:10 → TELE1 05:31 → MEDSG1 01-13 11:29 → TELE1 01-18 20:33 → ICU 01-18 22:40
PROVIDERS: ADMIT Internal Medicine
PROC: 30233N1 Transfusion of Nonautologous Red Blood Cells into Peripheral Vein, Percutaneous Approach (ICD-10-PCS; 2018-01-11)
PROC: 0BH17EZ Insertion of Endotracheal Airway into Trachea, Via Natural or Artificial Opening (ICD-10-PCS; principal; 2018-01-19)
PROC: 5A1945Z Respiratory Ventilation, 24-96 Consecutive Hours (ICD-10-PCS; principal; 2018-01-19)
PROC: B548ZZA Ultrasonography of Superior Vena Cava, Guidance (ICD-10-PCS; 2018-01-19)
PROC: 02HV33Z Insertion of Infusion Device into Superior Vena Cava, Percutaneous Approach (ICD-10-PCS; 2018-01-19)
PROC: 0DB78ZX Excision of Stomach, Pylorus, Via Natural or Artificial Opening Endoscopic, Diagnostic (ICD-10-PCS; 2018-01-20)
PROC: 0DB38ZX Excision of Lower Esophagus, Via Natural or Artificial Opening Endoscopic, Diagnostic (ICD-10-PCS; 2018-01-20)
DX: A41.9 Sepsis, unspecified organism (principal); J96.01 Acute respiratory failure with hypoxia; R57.1 Hypovolemic shock; K72.00 Acute and subacute hepatic failure without coma; I21.4 Non-ST elevation (NSTEMI) myocardial infarction; D80.6 Antibody deficiency with near-normal immunoglobulins or with hyperimmunoglobulinemia; J15.9 Unspecified bacterial pneumonia; N18.6 End stage renal disease; I13.2 Hypertensive heart and chronic kidney disease with heart failure and with stage 5 chronic kidney disease, or end stage renal disease; J18.9 Pneumonia, unspecified organism; K29.01 Acute gastritis with bleeding; E11.22 Type 2 diabetes mellitus with diabetic chronic kidney disease; E83.41 Hypermagnesemia; Z99.2 Dependence on renal dialysis; E03.9 Hypothyroidism, unspecified; E78.5 Hyperlipidemia, unspecified; I50.33 Acute on chronic diastolic (congestive) heart failure; K20.9 Esophagitis, unspecified; I25.2 Old myocardial infarction; Z79.82 Long term (current) use of aspirin; Z79.84 Long term (current) use of oral hypoglycemic drugs; Z79.899 Other long term (current) drug therapy; Z98.890 Other specified postprocedural states; Z87.891 Personal history of nicotine dependence; M85.9 Disorder of bone density and structure, unspecified; B34.9 Viral infection, unspecified; E83.39 Other disorders of phosphorus metabolism; E83.51 Hypocalcemia; E87.5 Hyperkalemia; Z66 Do not resuscitate; I48.91 Unspecified atrial fibrillation
CPT/HCPCS: 31720; 36415; 36569; 36600; 70450-TC; 71045-TC; 75574; 76700-TC; 80048-TC; 80053-TC; 80061-TC; 80076-TC; 80202-TC; 81000-TC; 82040-TC; 82272-TC; 82728-TC; 82784; 82803-TC; 82962-TC; 83540-TC; 83605-TC; 83735-TC; 83880; 84100-TC; 84155; 84165; 84439-TC; 84443-TC; 84480; 84481; 84484-TC; 85025-TC; 85027-TC; 85378-TC; 85385-TC; 85396; 85610-TC; 85730-TC; 86334; 86850-TC; 86921-TC; 87040-TC; 87070-TC; 87400; 88305-TC; 88313-TC; 88342; 90935-TC; 93307-TC; 94002-TC; 94003-TC; 94640-TC; 94760-TC; 94799-TC; A4216; A4606; A6403; C9113; G0378; J0330; J0696; J1720; J1815; J2185; J2370; J2405; J3370; J3490; J7030; J7040; J7050; J7060; J7070; P9016-BL; P9047; Q9967; Z7610